=== PATIENT | female | born 1950 | race Caucasian/White ===

== ENCOUNTER → 2018-01-08 12:54 | Outpatient (CLI) | payer MEDICARE, SELFPAY ==
[2018-01-08 13:52] LABS: Hemoglobin A1c 8.2 % (4.2-6.3)
[2018-01-08 13:57] LABS: Thyroid Stim Hormone (TSH) 3.38 uIU/mL (0.358-3.74)
== END ==
PROVIDERS: Family Provider Family Medicine; PCP Family Medicine; Visit Provider Family Medicine
DX: E11.9 Type 2 diabetes mellitus without complications (principal); I10 Essential (primary) hypertension
CPT/HCPCS: 36415; 83036; 84443

== ENCOUNTER → 2018-04-09 11:52 | Outpatient (CLI) | payer MEDICARE, SELFPAY ==
[2018-04-09 12:59] LABS: Hemoglobin A1c 7.9 % (4.2-6.3)
== END ==
PROVIDERS: Family Provider Family Medicine; PCP Family Medicine; Referring Provider Family Medicine; Visit Provider Family Medicine
DX: E11.9 Type 2 diabetes mellitus without complications (principal)
CPT/HCPCS: 36415; 83036

== ENCOUNTER 2018-05-08 11:00 | Outpatient (RCR) | payer MEDICARE, SELFPAY ==
--- NOTE | 2018-04-11 12:48 | HP.PTEVAL ---
Patient's Visit Information LISY MCKINNON is a 67 year old F referred to Physical Therapy by Klaus Rasmussen DO with a diagnosis of RIGHT SHOULDER ROTATOR CUFF ARTHROPATHY. Date of Evaluation: 04/11/18 Physical Therapist: Kira Goodrich Visit Plan Frequency: 2-3x /Week Duration: 4-6 Weeks Plan: US, POSTURE CORRECTION/STRENGTHENING, INSTRUCTION IN APPROPRIATE BODY MECHANICS AND ACTIVITY MODIFICATIONS. RIGHT UE ROM, MOBILIZATION, STRETCHING AND STRENGTHENING. HEP INSTRUCTION. - Subjective Subjective: Diagnosis: RIGHT SHOULDER ROTATOR CUFF ARTHROPATHY. Work/Leisure: RETIRED. 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 Disability: NO. Present symptoms: THE MAIN PAIN IS IN THE FRONT OF THE SHOULDER AND DOWN INTO THE BICEP. RIGHT NECK PAIN CAME LATER. NO UE NUMBNESS OR TINGLING. Present since: ABOUT A YEAR AGO. Pain Scale: Worst - 7/10 Least - 0/10. Currently: 0/10. Commenced as a result of: NO APPARENT REASON - GRADUAL. Symptoms at onset: SAME. Worse: TRYING TO HOLD ARM ABOVE HEAD, TRYING TO CURL HAIR, TRYING TO BLOW DRY HAIR, TRYING TO PUT A SHIRT ON, TRYING TO PUT COAT ON, TRYING TO REACH BEHIND BACK, LIFTING A COFFEE CUP UP TO DRINK, USING MOUSE ON COMPUTER. Better: RESTING. Disturbed sleep: YES. Previous history/Previous treatment: NO SHOULDER PROBLEM PRIOR TO A YEAR AGO BUT HAS HAD CHRONIC NECK PAIN LONGER. Dizziness: NO. Tinnitis: NO. Nausea: NO. Difficulty Swollowing: NO. Gait: RIGHT KNEE PAIN. NO AD'S NOW. NO FALLS. Accidents: NO. Unexplained weight loss: NO. Imaging: RIGHT SHOULDER X-RAY IN [place] ABOUT AUG 2017 - PATIENT REPORTS DR. RASMUSSEN TOLD HER THERE IS NO STRUCTUAL DAMAGE. PMH/Recent major surgery: STENT FOR KIDNEY STONES LAST. NIDDM, HTN, HYPOTHYROIDISM. OTHER: PATIENT REPORTS DR. RASMUSSEN TOLD HER HE THINKS SHE HAS A PARTIAL ROTATOR CUFF TEAR. - Objective Sitting Posture/Standing Posture: FORWARD HEAD AND ROUNDED SHOULDERS. NO TORTICOLLIS. Active Correction of posture: NE. Other Observations: INDEP GAIT AND TRANSFERS. Motor deficit: LUE ROM WFL. RIGHT SHOULDER GROSSLY 3-/5, ELBOW 4/5, WRIST AND HAND 5/5. Sensory deficit: NO. ROM deficit: ACTIVE RIGHT SHOULDER FLEX 115 DEG, ABD 110, ER 43 DEG AND IR 20 DEG WITH 80 DEG OF ABD IN SUPINE. LEFT UE WFL. Reflexes: MEGHNA UE DTR'S 1/2. Dural Signs: NEGATATIVE. Cervical Mvmt Loss: Flex: NIL. Pro: NIL. Ext: MOD TO CROW. Ret: CROW. RSB: MOD - PRODUCES RIGHT SHLD PAIN. LSB: MOD. R Rot: MOD - I FEEL IT IN MY SHOULDER. L Rot: MIN. Postural strength: POOR. Palpation: SORENESS WITH PALPATION OF ANTERIOR RIGHT SHOULDER INTO BICEP BUT NOT IN CERVICAL SPINE. - Goals Goal 1:: DECREASE C/O RIGHT SHOULDER/ARM PAIN Goal Time Frame: 4-6 Weeks Goal 2:: IMPROVE FUNCTIONAL ROM OF RIGHT UE Goal Time Frame: 4-6 Weeks Goal 3:: IMPROVE FUNCTIONAL STRENGTH OF RIGHT UE Goal Time Frame: 4-6 Weeks Goal 4:: INDEP HEP Goal Time Frame: 4-6 Weeks - Rehabilitation Potential Rehabilitation Potential: Fair - Anticipated Interventions Patient/Client Instruction: Educate patient on: Condition, Plan of Care, Risk Factors, Benefits of Fitness Program For the Purpose of:: To improve self management Therapeutic Exercise to Include: Strength training, Body mechanics, Postural training, Flexibilty training, Passive ROM, Active ROM, Scapular Strength/Stabilization For the Purpose of:: To decrease pain, To increase ROM, To improve muscle performance and motor function, To increase tolerance to activity/condition/position, To improve ability of physical actions for home/community/work/leisure Manual Therapy Techniques to Include: Mobilization, Passive ROM For the Purpose of:: To decrease pain, To increase ROM Cryotherapy (ice pack, ice massage): Yes Thermo therapy (hot pack): Yes Ultrasound (thermal/non thermal): Yes For the Purpose of:: To decrease pain, To increase ROM Thank you for the opportunity to evaluate your patient. For Medicare and Medicare HMO plans, please review the plan of care and approve it. It will need to be FAXED BACK to us at [phone] for Medicare purposes. Please let me know if there are questions or concerns regarding this plan of care. Physician Signature: Date:
--- NOTE | 2018-08-25 10:32 | HP.PT.NRP ---
HP - Discharge Summary (1) - Patient Information LISY MCKINNON was seen in my office for initial evaluation on 04/11/18. The following Plan of Care was established for this patient: Initial Frequency: 2-3x /Week Initial Duration: 4-6 Weeks - Anticipated Interventions Patient/Client Instruction: Educate patient on: Condition, Plan of Care, Risk Factors, Benefits of Fitness Program For the Purpose of:: To improve self management Therapeutic Exercise to Include: Strength training, Body mechanics, Postural training, Flexibilty training, Passive ROM, Active ROM, Scapular Strength/Stabilization For the Purpose of:: To decrease pain, To increase ROM, To improve muscle performance and motor function, To increase tolerance to activity/condition/position, To improve ability of physical actions for home/community/work/leisure Manual Therapy Techniques to Include: Mobilization, Passive ROM For the Purpose of:: To decrease pain, To increase ROM Cryotherapy (ice pack, ice massage): Yes Thermo therapy (hot pack): Yes Ultrasound (thermal/non thermal): Yes For the Purpose of:: To decrease pain, To increase ROM This patient was last seen in our office 05/08/18. Pertinent comments regarding their Physical therapy will appear below: This patient has not returned to Physical Therapy and is appropriate to return to MD for further follow-up as needed. At this point I will be discontinuing this patient from physical therapy. I would be happy to see this patient again in the future if found appropriate by the physician. Thank you! Kira Mata, PT, Cert MDT
== END 2018-05-08 19:00 | disposition home or self-care (01) ==
LOC: PT 11:00
PROVIDERS: Family Provider Family Medicine; PCP Family Medicine; Referring Provider Family Medicine; Visit Provider Family Medicine
DX: M12.811 Other specific arthropathies, not elsewhere classified, right shoulder (principal)
CPT/HCPCS: 97035; 97140; 97162; 97530

== ENCOUNTER → 2018-05-26 16:15 | Outpatient (CLI) | payer MEDICARE, SELFPAY ==
--- NOTE | 2018-05-26 16:17 | MRI_ITS ---
STUDY: MRI RIGHT SHOULDER REASON FOR EXAM: Shoulder pain with limited range of motion for one year, no specific injury, calcific tendinitis. TECHNIQUE: Standardized fat and water weighted pulse sequences were obtained in all 3 orthogonal planes. COMPARISON: None. FINDINGS: There is a suspected signal void in the distal anterior supraspinatus tendon (proton density axial image 9), suggestive of calcific tendinitis, and a small linear intermediate grade partial-thickness tear of the articular surface of the distal posterior supraspinatus tendon at the greater tuberosity insertion (proton-density coronal image 11; T2 coronal image 11). Normal infraspinatus tendon. Normal subscapularis tendon. Normal teres minor tendon. Normal supraspinatus muscle. Normal infraspinatus muscle. Normal subscapularis muscle. Normal teres minor muscle. There is a minimal volume of fluid in the glenohumeral joint, extending into the bicipital tendon sheath. There is mild cystic change of the posterior aspect of the greater tuberosity. Normal biceps labral complex. Normal intracapsular long biceps tendon. Normal labrum. Normal capsulo- ligamentous complex. There is acromioclavicular arthrosis with mild hypertrophic changes effacing the subacromial fat (T2 sagittal image 11). There is a Type II morphology (curved), with a mild posterior downsloping orientation. There is a trace of subacromial-subdeltoid bursal fluid. Normal visualized coracohumeral and coracoacromial ligaments. Normal deltoid muscle. Normal trapezius muscle. MRI/Upper Ext Joint Only(Routine) IMPRESSION: Small linear partial-thickness tear of the supraspinatus tendon and suspected supraspinatus calcific tendinitis. Acromioclavicular arthrosis. Electronically Signed: Dean Pfeiffer MD at 11:28 EST Tel , Service support ,
--- OUTSIDE RECORDS SUMMARY | 2018-07-08 15:44 | XMS RPT_ITS ---
:1950 Author Organization OHIP Support Name Relationship Address Phone REBEAC MCKINNON Unavailable [address] + [place] [address] R Unavailable Unavailable Unavailable REBECA MCKINNON Unavailable [address] + [place] [address] R Unavailable Unavailable Unavailable REBECA MCKINNON Unavailable [address] + [place] [address] R Unavailable Unavailable Unavailable REBECA MCKINNON Unavailable [address] + [place] [address] R Unavailable Unavailable Unavailable REBECA MCKINNON Unavailable [address] + [place] [address] R Unavailable Unavailable Unavailable REBECA MCKINNON Unavailable [address] + [place] [address] R Unavailable Unavailable Unavailable REBECA MCKINNON Unavailable [address] + [place] [address] R Unavailable Unavailable Unavailable REBECA MCKINNON Unavailable [address] + [place] [address] R Unavailable Unavailable Unavailable REBECA MCKINNON Unavailable [address] + [place] [address] R Unavailable Unavailable Unavailable REBECA MCKINNON Unavailable [address] + [place] [address] R Unavailable Unavailable Unavailable REBECA MCKINNON Unavailable Unavailable + REBECA MCKINNON Unavailable Unavailable + Care Team Providers Name Role Phone VINNY RASMUSSEN Attending Unavailable BROWN, VINNY Primary Care Unavailable Didi Moctezuma Attending Unavailable Brown, Vinny Attending Unavailable Brown, Vinny Referring Unavailable MoctezumaSanchezvet Attending Unavailable Brown, Vinny Attending Unavailable Brown, Vinny Referring Unavailable Brown, Vinny Primary Care Unavailable Brown, Vinny Attending Unavailable Brown, Vinny Referring Unavailable Brown, Vinny Attending Unavailable Brown, Vinny Referring Unavailable Brown, Vinny Primary Care Unavailable Brown, Vinny Attending Unavailable Brown, Vinny Referring Unavailable Brown, Vinny Primary Care Unavailable Chicorelli, Adele Attending Unavailable Brown, Vinny Referring Unavailable Chicorelli, Adele Attending Unavailable Chicorelli, Adele Referring Unavailable Brown, Vinny Primary Care Unavailable Chicorelli, Adele Attending Unavailable Brown, Vinny Referring Unavailable PROBLEMS PROBLEMS DATE TYPE CONDITION / CODE ATTENDING STATUS SOURCE 06/05/2018 Unknown M75.31 - Calcific Chicorelli, Active [place] tendinitis of right [facility] shoulder / Hospital M75.31(ICD-10) Repository 06/05/2018 Unknown M75.81 - Other Chicorelli, Active [place] shoulder lesions, [facility] right shoulder / Hospital M75.81(ICD-10) Repository 06/05/2018 Unknown M75.51 - Bursitis Chicorelli, Active [place] of right shoulder / [facility] M75.51(ICD-10) Hospital Repository 05/08/2018 Unknown M12.811 - Other Brown, Vinny Active [place] specific [facility] arthropathies, not Hospital elsewhere Repository classified, right shoulder / M12.811(ICD-10) 04/09/2018 Unknown E11.9 - Type 2 Brown, Vinny Active [place] diabetes mellitus [facility] without Hospital complications / Repository E11.9(ICD-10) 01/08/2018 Unknown I10 - Essential Brown, Vinny Active [place] (primary) [facility] hypertension / Hospital I10(ICD-10) Repository 01/07/2018 Unknown E03.9 - Brown, Vinny Active [place] Hypothyroidism, [facility] unspecified / Hospital E03.9(ICD-10) Repository PROCEDURES PROCEDURES No Procedure Records FoundRESULTS RESULTS ORTHOPEDIC VISIT Observed: 06/05/2018 Status: F Source: [place] REPORT 2:16 PM [facility] REPOSITORY [facility] [address] [place], [place] [id number] OFFICE VISIT Date of Service: 06/05/18 MR#: [id number] Acct: [id number] Name: ALISON MCKINNON Rep #: [id number] : 1950 Provider: Adele Hernandez DO Age/Sex: 67/F [place] [facility] Status: Signed Intake Intake Visit Reasons: RIGHT SHOULDER Is patient in pain?: No Allergies bacitracin [From Neosporin (vgb-hbe-bqook)] Allergy (Verified 06/05/18 13:00) Other neomycin [From Neosporin (oac-buo-cpslz)] Allergy (Verified 06/05/18 13:00) Other polymyxin B [From Neosporin (jpu-sfs-wjuwf)] Allergy (Verified 06/05/18 13:00) Other succinylcholine [From Anectine] Allergy (Verified 06/05/18 13:00) Other Medications Aspirin [Aspirin, Baby] 81 mg PO DAILY@0800 09/14/16 [History Confirmed 04/09/18] Calcium Carbonate [Calcium] 200 mg PO DAILY 09/14/16 [History Confirmed 04/09/18] bisoprolol 5 mg-hydrochlorothiazide 6.25 mg tablet 1 tab PO DAILY #90 tab 11/30/17 [Rx Confirmed 04/09/18] glipizide ER 2.5 mg tablet, extended release 24 hr 5 mg PO DAILY #90 tab 11/30/17 [Rx Confirmed 04/09/18] levothyroxine 75 mcg tablet 75 mcg PO DAILY #90 tab 11/30/17 [Rx Confirmed 04/09/18] metformin ER 1,000 mg 24 hr tablet,extended release 1,000 mg PO DAILY #90 tab 11/30/17 [Rx Confirmed 04/09/18] blood sugar diagnostic strips See Dose Instructions .ROUTE .MEDSUPPLY #20 ea 01/03/18 [History Confirmed 04/09/18] empagliflozin 25 mg tablet 25 mg PO QAM 01/03/18 [History Confirmed 04/09/18] lancets 26 gauge See Dose Instructions .ROUTE .MEDSUPPLY #50 ea 01/03/18 [History Confirmed 04/09/18] oxybutynin chloride ER 10 mg tablet,extended release 24 hr 10 mg PO DAILY #30 tab 04/09/18 [Rx Confirmed 04/09/18] alpha lipoic acid 200 mg capsule mg PO cap 05/08/18 [History Confirmed 05/08/18] cinnamon bark 500 mg capsule mg PO cap 05/08/18 [History Confirmed 05/08/18] coenzyme Q10 30 mg capsule 30 mg PO DAILY 05/08/18 [History Confirmed 05/08/18] flaxseed oil 1,000 mg capsule 1,000 mg PO BID 05/08/18 [History Confirmed 05/08/18] glucosamine HCl 1,500 mg tablet 1,500 mg PO DAILY 05/08/18 [History Confirmed 05/08/18] grape seed extract-bioflavonoids, citrus 50 mg-250 mg capsule cap PO cap 05/08/18 [History Confirmed 05/08/18] minerals tablet tab PO tab 05/08/18 [History Confirmed 05/08/18] vitamins A,C,and E-selenium capsule 1 cap PO BID 05/08/18 [History Confirmed 05/08/18] PFSH Medical History History of kidney stones (Acute) Knee pain (Acute) Hypertension (Chronic) Type 2 diabetes mellitus (Chronic) Hypothyroidism (Chronic) Surgical History History of (Acute) History of hysterectomy (Acute) History of orthopedic surgery (Acute) History of tubal ligation (Acute) Normal colonoscopy (Acute) bartholin gland surgery (Acute) left ankle repair (Acute) Family History Mother Diabetes Hypertension Heart disease CVA (cerebral vascular accident) Grandmother Diabetes Hypertension Grandfather Cancer Father Myocardial infarction Hypertension Heart disease Melanoma High cholesterol Social History Smoking Status: Never smoker alcohol intake: never substance use type: does not use what type of physical activity do you participate in: bicycling HPI RIGHT SHOULDER: Details: ALISON MCKINNON is a 67 year old F here today for right shoulder pain. Patient notes that her pain is over her anterior shoulder and into her upper arm, and into her posterior shoulder. Patient has pain with range of motion and has decreased range of motion. Denies numbness, tingling or other associated symptoms. She denies any injections. Patient had multiple sessions of PT which was helpful. She had an MRI which is here for review. ROS Const Reports system reviewed and no additional complaints, except as docu Eyes Reports system reviewed and no additional complaints, except as docu ENT Reports system reviewed and no additional complaints, except as docu Card Reports system reviewed and no additional complaints, except as docu Resp Reports system reviewed and no additional complaints, except as docu GI Reports system reviewed and no additional complaints, except as docu Reports system reviewed and no additional complaints, except as docu Musc Reports joint pain, Reports limited joint movement, Reports muscle weakness Skin/Breast Reports system reviewed and no additional complaints, except as docu Neuro Yes system reviewed and no additional complaints, except as docu Psych Reports system reviewed and no additional complaints, except as docu Endo Reports system reviewed and no additional complaints, except as docu Ortho Exam Right Shoulder Skin/Wound: Yes CDI Contralateral Normal: Yes Testing: Positive Hawkin's, Neer's, empty can and AROM-Forward Elevation 0-180 (130) Internal Rotation: Buttock Office Procedures Ortho Injections Injections Yes Subacromial Injection Right Details: Obtained consent for injection. Under sterile conditions, injected the patients right subacromial joint with a 10cc cocktail of 8cc bupivacaine and 2cc kenalog. The patient tolerated the injection well without any noted complication. Patient should call our office if redness develops, pain worsens or if they have any concerns. Office Meds Kenalog Performing Provider: Adele Hernandez DO Administered by: Ismael Ervni on 06/05/18 13:16 Dose Route Admin Location Lot Number Expiration DateNDC Teaching Assistant 80 mg Intra-Articularright [id number] 05/31/19 [id number] [employer] [facility] Assessment AND Plan 1. Calcific tendinitis of right shoulder M75.31 Plan Personally reviewed the MRI and explained that she has small partial tear of the supraspinatus, bursitis and calcific tendonitis. Her treatment options are do nothing, injection or shoulder scope. Reviewed the risks and benefits of a steroid injection today, she can have two injections before we discuss a shoulder arthroscopy. Continue HEP. Follow up in 3-4 months or sooner if pain, swelling, numbness or associated symptoms, or concerns develop. All questions answered. Patient in agreement of plan. Orders Orders: Medications Discontinued: Kenalog (triamcinolone acetonide) Xunwhvds75 mg (2 mL) Intra-Articular ONCE 2 mL 0RF NS nued Reason: Office Medication has been Docu mented as given 2. Right rotator cuff tendinitis M75.81 Orders Orders: Medications Discontinued: Kenalog (triamcinolone acetonide) Yxzgomzo99 mg (2 mL) Intra-Articular ONCE 2 mL 0RF NS nued Reason: Office Medication has been Docu mented as given 3. 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) 06/05/18 1416 <Electronically signed by Adele Hernandez DO> Date Adele Hernandez DO Cosigner Signature: Date (if applicable) CC: UPPER EXT JOINT Observed: 05/26/2018 Status: F Source: [place] ONLY(ROUTINE) 4:17 PM [facility] REPOSITORY [facility] Imaging Services [address] [place] [id number] Upper Ext Joint Only(Routine) MR#: [id number] Acct: [id number] Name: ALISON MCKINNON Rep #: [id number] : 1950 F 67 From: Dean Pfeiffer MD PCP: Vinny Rasmussen DO Status: REG CLI Study: Upper Ext Joint Only(Routine) Date of Exam: 05/26/18 Exam# [id number] Ordering Dr: Adele Hernandez DO STUDY: MRI RIGHT SHOULDER REASON FOR EXAM: Shoulder pain with limited range of motion for one year, no specific injury, calcific tendinitis. TECHNIQUE: Standardized fat and water weighted pulse sequences were obtained in all 3 orthogonal planes. COMPARISON: None. FINDINGS: There is a suspected signal void in the distal anterior supraspinatus tendon (proton density axial image 9), suggestive of calcific tendinitis, and a small linear intermediate grade partial-thickness tear of the articular surface of the distal posterior supraspinatus tendon at the greater tuberosity insertion (proton-density coronal image 11; T2 coronal image 11). Normal infraspinatus tendon. Normal subscapularis tendon. Normal teres minor tendon. Normal supraspinatus muscle. Normal infraspinatus muscle. Normal subscapularis muscle. Normal teres minor muscle. There is a minimal volume of fluid in the glenohumeral joint, extending into the bicipital tendon sheath. There is mild cystic change of the posterior aspect of the greater tuberosity. Normal biceps labral complex. Normal intracapsular long biceps tendon. Normal labrum. Normal capsulo- ligamentous complex. There is acromioclavicular arthrosis with mild hypertrophic changes effacing the subacromial fat (T2 sagittal image 11). There is a Type II morphology (curved), with a mild posterior downsloping orientation. There is a trace of subacromial-subdeltoid bursal fluid. Normal visualized coracohumeral and coracoacromial ligaments. Normal deltoid muscle. Normal trapezius muscle. MRI/Upper Ext Joint Only(Routine) IMPRESSION: Small linear partial-thickness tear of the supraspinatus tendon and suspected supraspinatus calcific tendinitis. Acromioclavicular arthrosis. Electronically Signed: Dean Pfeiffer MD at 11:28 EST Tel , Service support , CC: Adele Hernandez DO; Vinny Rasmussen DO District Manager Postal Service: Signed ORTHOPEDIC VISIT Observed: 05/08/2018 Status: F Source: [place] REPORT 4:18 PM [facility] REPOSITORY [facility] [address] [place] [address] OFFICE VISIT Date of Service: 05/08/18 MR#: [id number] Acct: [id number] Name: ALISON MCKINNON Rep #: [id number] : 1950 Provider: Adele Hernandez DO Age/Sex: 67/F [place] [facility] Status: Signed Intake Intake Visit Reasons: RIGHT SHOULDER Chief Complaint: 3 mo F/ - Diabetes Inpatient Services Rn Required: No Accompanied by: None Is patient in pain?: No Allergies bacitracin [From Neosporin (olw-yjc-hexdm)] Allergy (Verified 04/09/18 11:03) Other neomycin [From Neosporin (gra-ihr-dpdgs)] Allergy (Verified 04/09/18 11:03) Other polymyxin B [From Neosporin (aau-vcj-kjrzu)] Allergy (Verified 04/09/18 11:03) Other succinylcholine [From Anectine] Allergy (Verified 04/09/18 11:03) Other Medications Aspirin [Aspirin, Baby] 81 mg PO DAILY@0800 09/14/16 [History Confirmed 04/09/18] Calcium Carbonate [Calcium] 200 mg PO DAILY 09/14/16 [History Confirmed 04/09/18] bisoprolol 5 mg-hydrochlorothiazide 6.25 mg tablet 1 tab PO DAILY #90 tab 11/30/17 [Rx Confirmed 04/09/18] glipizide ER 2.5 mg tablet, extended release 24 hr 5 mg PO DAILY #90 tab 11/30/17 [Rx Confirmed 04/09/18] levothyroxine 75 mcg tablet 75 mcg PO DAILY #90 tab 11/30/17 [Rx Confirmed 04/09/18] metformin ER 1,000 mg 24 hr tablet,extended release 1,000 mg PO DAILY #90 tab 11/30/17 [Rx Confirmed 04/09/18] blood sugar diagnostic strips See Dose Instructions .ROUTE .MEDSUPPLY #20 ea 01/03/18 [History Confirmed 04/09/18] empagliflozin 25 mg tablet 25 mg PO QAM 01/03/18 [History Confirmed 04/09/18] lancets 26 gauge See Dose Instructions .ROUTE .MEDSUPPLY #50 ea 01/03/18 [History Confirmed 04/09/18] oxybutynin chloride ER 10 mg tablet,extended release 24 hr 10 mg PO DAILY #30 tab 04/09/18 [Rx Confirmed 04/09/18] alpha lipoic acid 200 mg capsule mg PO cap 05/08/18 [History Confirmed 05/08/18] cinnamon bark 500 mg capsule mg PO cap 05/08/18 [History Confirmed 05/08/18] coenzyme Q10 30 mg capsule 30 mg PO DAILY 05/08/18 [History Confirmed 05/08/18] flaxseed oil 1,000 mg capsule 1,000 mg PO BID 05/08/18 [History Confirmed 05/08/18] glucosamine HCl 1,500 mg tablet 1,500 mg PO DAILY 05/08/18 [History Confirmed 05/08/18] grape seed extract-bioflavonoids, citrus 50 mg-250 mg capsule cap PO cap 05/08/18 [History Confirmed 05/08/18] minerals tablet tab PO tab 05/08/18 [History Confirmed 05/08/18] vitamins A,C,and E-selenium capsule 1 cap PO BID 05/08/18 [History Confirmed 05/08/18] PFS Medical History History of kidney stones (Acute) Knee pain (Acute) Hypertension (Chronic) Type 2 diabetes mellitus (Chronic) Hypothyroidism (Chronic) Surgical History History of (Acute) History of hysterectomy (Acute) History of orthopedic surgery (Acute) History of tubal ligation (Acute) Normal colonoscopy (Acute) bartholin gland surgery (Acute) left ankle repair (Acute) Family History Mother Diabetes Hypertension Heart disease CVA (cerebral vascular accident) Grandmother Diabetes Hypertension Grandfather Cancer Father Myocardial infarction Hypertension Heart disease Melanoma High cholesterol Social History Smoking Status: Never smoker alcohol intake: never substance use type: does not use what type of physical activity do you participate in: bicycling HPI RIGHT SHOULDER: Details: ALISON MCKNINON is a 67 year old F here today for right shoulder pain. Patients shoulder has been bothering her for over a year with no known injury. Patient rates her pain as a 0/10 right now but states it depends on what she is doing as to if it hurts her. Patients pain is at her right deltoid, bicep and around to the scapula. Patient is able to lift her arm above her head and abduct it, but states she feels it. She states she is unable to put her arm behind her back. Moving and using her arm seems to make the pain worse. Patient states holding still and ice seem to help relieve the pain. Patient states that she used heat before and it seemed to make it worse. Patient denies popping or clicking and swelling. Denies numbness and tingling. Patient has had xrays in August 2017, No MRI or injections. Patient is currently in PT and it seems to be helping. Ortho Exam Right Shoulder Contralateral Normal: Yes Testing: Positive Hawkin's, Neer's, Speed's, AROM-External Rotation at side 0-60, TTP Biceps, PROM-Forward Elevation 0-180 (pos drop a) and Drop Arm Internal Rotation: Buttock SHOULDER: 0-30 paifnul. weak external rotation Assessment AND Plan 1. Calcific tendinitis of right shoulder M75.31 Plan Personally reviewed the patient's medical history, medications, surgeries and recent exams if available. X-rays were reviewed. There is no obvious fracture, dislocation, or lucency noted. Educated on the anatomy of the shoulder and etiology of her pain. Explained that she has calcific tendonitis and has RTC weakness, her treatment options are do nothing, continue PT, steroid injection or MRI to delineate between weakness of RTC due to pain or tear. Patient is in understanding of the benefits of the injection and will discuss further after MRI. Follow up after MRI or sooner if pain, swelling, numbness or associated symptoms, or concerns develop. All questions answered. Patient in agreement of plan. Orders Orders: Plan Detail Other Orders Orders: Coding Level of Care Code Off vis,new,level 3 Diagnoses Calcific tendinitis of right shoulder M75.31 05/08/18 1618 <Electronically signed by Adele Hernandez DO> Date Adele Hernandez DO Cosigner Signature: Date (if applicable) CC: Vinny Rasmussen DO INITAL EVALUATION (1) Observed: 04/11/2018 Status: F Source: [place] - PT 5:00 PM [facility] REPOSITORY [facility] Physical Therapy [address] [place] [address] Fax REHABILITATION SERVICES INITIAL EVALUATION MR#: [id number] Acct: [id number] Name: ALISON MCKINNON Rep #: [id number] : 1950 67 From: Kira Mata PT, Cert. MDT Referring Dr.: Vinny Rasmussen DO Status: REG RCR Insurance: MMO MEDICARE SELF PAY INSURANCE Patient's Visit Information ALISON MCKINNON is a 67 year old F referred to Physical Therapy by Vinny Rasmussen DO with a diagnosis of RIGHT SHOULDER ROTATOR CUFF ARTHROPATHY. Date of Evaluation: 04/11/18 Physical Therapist: Kira Mata - Visit Plan Frequency: 2-3x /Week Duration: 4-6 Weeks Plan: US, POSTURE CORRECTION/STRENGTHENING, INSTRUCTION IN APPROPRIATE BODY MECHANICS AND ACTIVITY MODIFICATIONS. RIGHT UE ROM, MOBILIZATION, STRETCHING AND STRENGTHENING. HEP INSTRUCTION. - Subjective Subjective: Diagnosis: RIGHT SHOULDER ROTATOR CUFF ARTHROPATHY. Work/Leisure: RETIRED. 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 Disability: NO. Present symptoms: THE MAIN PAIN IS IN THE FRONT OF THE SHOULDER AND DOWN INTO THE BICEP. RIGHT NECK PAIN CAME LATER. NO UE NUMBNESS OR TINGLING. Present since: ABOUT A YEAR AGO. Pain Scale: Worst - 7/10 Least - 0/10. Currently: 0/10. Commenced as a result of: NO APPARENT REASON - GRADUAL. Symptoms at onset: SAME. Worse: TRYING TO HOLD ARM ABOVE HEAD, TRYING TO CURL HAIR, TRYING TO BLOW DRY HAIR, TRYING TO PUT A SHIRT ON, TRYING TO PUT COAT ON, TRYING TO REACH BEHIND BACK, LIFTING A COFFEE CUP UP TO DRINK, USING MOUSE ON COMPUTER. Better: RESTING. Disturbed sleep: YES. Previous history/Previous treatment: NO SHOULDER PROBLEM PRIOR TO A YEAR AGO BUT HAS HAD CHRONIC NECK PAIN LONGER. Dizziness: NO. Tinnitis: NO. Nausea: NO. Difficulty Swollowing: NO. Gait: RIGHT KNEE PAIN. NO AD'S NOW. NO FALLS. Accidents: NO. Unexplained weight loss: NO. Imaging: RIGHT SHOULDER X-RAY IN [place] ABOUT AUG 2017 - PATIENT REPORTS DR. RASMUSSEN TOLD HER THERE IS NO STRUCTUAL DAMAGE. PMH/Recent major surgery: STENT FOR KIDNEY STONES LAST. NIDDM, HTN, HYPOTHYROIDISM. OTHER: PATIENT REPORTS DR. RASMUSSEN TOLD HER HE THINKS SHE HAS A PARTIAL ROTATOR CUFF TEAR. - Objective Sitting Posture/Standing Posture: FORWARD HEAD AND ROUNDED SHOULDERS. NO TORTICOLLIS. Active Correction of posture: NE. Other Observations: INDEP GAIT AND TRANSFERS. Motor deficit: LUE ROM WFL. RIGHT SHOULDER GROSSLY 3-/5, ELBOW 4/5, WRIST AND HAND 5/5. Sensory deficit: NO. ROM deficit: ACTIVE RIGHT SHOULDER FLEX 115 DEG, ABD 110, ER 43 DEG AND IR 20 DEG WITH 80 DEG OF ABD IN SUPINE. LEFT UE WFL. Reflexes: MEGHNA UE DTR'S 1/. Dural Signs: NEGATATIVE. Cervical Mvmt Loss: Flex: NIL. Pro: NIL. Ext: MOD TO CROW. Ret: CROW. RSB: MOD - PRODUCES RIGHT SHLD PAIN. LSB: MOD. R Rot: MOD - I FEEL IT IN MY SHOULDER. L Rot: MIN. Postural strength: POOR. Palpation: SORENESS WITH PALPATION OF ANTERIOR RIGHT SHOULDER INTO BICEP BUT NOT IN CERVICAL SPINE. - Goals Goal 1:: DECREASE C/O RIGHT SHOULDER/ARM PAIN Goal Time Frame: 4-6 Weeks Goal 2:: IMPROVE FUNCTIONAL ROM OF RIGHT UE Goal Time Frame: 4-6 Weeks Goal 3:: IMPROVE FUNCTIONAL STRENGTH OF RIGHT UE Goal Time Frame: 4-6 Weeks Goal 4:: INDEP HEP Goal Time Frame: 4-6 Weeks - Rehabilitation Potential Rehabilitation Potential: Fair - Anticipated Interventions Patient/Client Instruction: Educate patient on: Condition, Plan of Care, Risk Factors, Benefits of Fitness Program For the Purpose of:: To improve self management Therapeutic Exercise to Include: Strength training, Body mechanics, Postural training, Flexibilty training, Passive ROM, Active ROM, Scapular Strength/Stabilization For the Purpose of:: To decrease pain, To increase ROM, To improve muscle performance and motor function, To increase tolerance to activity/condition/position, To improve ability of physical actions for home/community/work/leisure Manual Therapy Techniques to Include: Mobilization, Passive ROM For the Purpose of:: To decrease pain, To increase ROM Cryotherapy (ice pack, ice massage): Yes Thermo therapy (hot pack): Yes Ultrasound (thermal/non thermal): Yes For the Purpose of:: To decrease pain, To increase ROM Thank you for the opportunity to evaluate your patient. For Medicare and Medicare HMO plans, please review the plan of care and approve it. It will need to be FAXED BACK to us at [phone] for Medicare purposes. Please let me know if there are questions or concerns regarding this plan of care. Physician Signature: Date: <Electronically signed by Kira Mata PT, Cert. MDT> 04/11/18 1700 CC: Vinny Rasmussen DO [place] Signed For Medicare only, by signing this I certify the plan of care. Physicians Signature Date INTERNAL MEDICINE Observed: 04/09/2018 Status: F Source: [place] OFFICE VISIT 12:56 PM [facility] [address] [place] [address] OFFICE VISIT Date of Service: 04/09/18 MR#: [id number] Acct: [id number] Name: ALISON MCKINNON Rep #: [id number] : 1950 Provider: Vinny Rasmussen DO Age/Sex: 67/F [place] [facility] Status: Signed Intake Vital Signs04/09/18 Height 5 ft 2 in 04/09/18 Weight: 164 lb 04/09/18 Body Mass Index (BMI) 29.9 04/09/18 Blood Pressure 155/87 H 04/09/18 Blood Pressure Location Lt brachial Intake Visit Reasons: 3 MO FU Chief Complaint: 3 mo F/ - Diabetes Allergies bacitracin [From Neosporin (wye-mry-igilk)] Allergy (Verified 04/09/18 11:03) Other neomycin [From Neosporin (occ-hrm-radpa)] Allergy (Verified 04/09/18 11:03) Other polymyxin B [From Neosporin (ull-tat-nfqjz)] Allergy (Verified 04/09/18 11:03) Other succinylcholine [From Anectine] Allergy (Verified 04/09/18 11:03) Other Medications Aspirin [Aspirin, Baby] 81 mg PO DAILY@0800 09/14/16 [History Confirmed 04/09/18] Calcium Carbonate [Calcium] 200 mg PO DAILY 09/14/16 [History Confirmed 04/09/18] bisoprolol 5 mg-hydrochlorothiazide 6.25 mg tablet 1 tab PO DAILY #90 tab 11/30/17 [Rx Confirmed 04/09/18] glipizide ER 2.5 mg tablet, extended release 24 hr 5 mg PO DAILY #90 tab 11/30/17 [Rx Confirmed 04/09/18] levothyroxine 75 mcg tablet 75 mcg PO DAILY #90 tab 11/30/17 [Rx Confirmed 04/09/18] metformin ER 1,000 mg 24 hr tablet,extended release 1,000 mg PO DAILY #90 tab 11/30/17 [Rx Confirmed 04/09/18] blood sugar diagnostic strips See Dose Instructions .ROUTE .MEDSUPPLY #20 ea 01/03/18 [History Confirmed 04/09/18] empagliflozin 25 mg tablet 25 mg PO QAM 01/03/18 [History Confirmed 04/09/18] lancets 26 gauge See Dose Instructions .ROUTE .MEDSUPPLY #50 ea 01/03/18 [History Confirmed 04/09/18] oxybutynin chloride ER 10 mg tablet,extended release 24 hr 10 mg PO DAILY #30 tab 04/09/18 [Rx Confirmed 04/09/18] PFSH Medical History History of kidney stones (Acute) Knee pain (Acute) Hypertension (Chronic) Type 2 diabetes mellitus (Chronic) Hypothyroidism (Chronic) Surgical History History of (Acute) History of hysterectomy (Acute) History of orthopedic surgery (Acute) History of tubal ligation (Acute) Normal colonoscopy (Acute) bartholin gland surgery (Acute) left ankle repair (Acute) Family History Mother Diabetes Hypertension Heart disease CVA (cerebral vascular accident) Grandmother Diabetes Hypertension Grandfather Cancer Father Myocardial infarction Hypertension Heart disease Melanoma High cholesterol Social History Smoking Status: Never smoker alcohol intake: never substance use type: does not use what type of physical activity do you participate in: bicycling HPI HPI Chief Complaint: 3 mo F/ - Diabetes Details: ALISON MCKINNON, is a 67 F who presents to the office today for a recheck on her diabetes. She also complains that her right shoulder is getting worse. It has been x-rayed in the past x-rays showed no bony abnormalities but she is unable to have even close to full range of motion of the shoulder and it is interfering with her day-to-day activities. ROS Const Constitutional: Positive for sleep problems; no chills, fatigue, fever(s), frequent falls, malaise, weakness or change in appetite Eyes Eyes: No blurry vision, change in vision, double vision, discharge or visual disturbances ENT ENT: No abnormal hearing, ear pain, ear pressure, tinnitus or dizziness/vertigo Resp Respiratory: No cough, shortness of breath or wheezing Cardio Cardiology: No chest pain at rest, chest pain with exertion, shortness of breath, dyspnea on exertion, generalized swelling, irregular heart rhythm, lightheadedness, orthopnea, fast heart rate or palpitations Gastro GI: Positive for constipation; no abdominal pain, change in bowel habits, diarrhea, nausea/dyspepsia or vomiting Genitourinary-Female: Positive for urinary incontinence; no difficulty urinating, burning urination, painful urination, urinary frequency, urinary urgency, urinary hesitancy, urinary retention, Frequent nighttime urination/ nocturia, sexual problems, genital lesions, abnormal vaginal bleeding, pelvic pain, vaginal dryness, vaginal odor or Vaginal Itching Musc Musculoskeletal: Positive for joint pain (Rt shoulder) and numbness (Feet); no back pain, joint swelling, limited range of motion, muscle weakness or tingling Skin Skin: No change in skin color, itching, rash or wounds Breast Breast: No breast lump or breast pain Neuro Neurology: Positive for numbness (Feet); no frequent falls, weakness, abnormal hearing, tingling, unsteady gait/balance, dizziness, loss of vision, memory loss or visual disturbances Psych Psychiatric: No memory loss, No anxiety, No change in appetite, No depression, No Thoughts of harming yourself/Others Endo Endocrine: No fatigue, heat intolerance, increased thirst/drinking, increased hunger or increased urination Aller/Imm Allergy/Immunologic: No wheezing, itchy eyes or seasonal allergy symptoms David/Lymp Hematologic/Lymphatic: No easy bleeding, easy bruising or enlarged lymph nodes Exam Const General: cooperative, healthy appearing Nutritional Appearance: average body habitus Orientation: oriented x3 Neck Neck: no lymphadenopathy Neck mass: No Thyroid: thyroid normal Resp Effort AND Inspection: normal respiratory effort Auscultation: Bilateral: Clear to Auscultation Cardio Rate: regular rate Rhythm: regular rhythm Musc Musculoskeletal: Yes joint tenderness and decreased ROM (Marked decrease of ROM Shoulder); no muscle weakness Skin General: no rashes or lesions noted Neuro Cranial Nerves: CN's II-XI intact bilaterally Extrem General: no clubbing, cyanosis or edema Psych Mood: congruent mood Affect: normal affect Assessment AND Plan Problems 1. Urge incontinence N39.41 2. Hypertension I10 3. Type 2 diabetes mellitus E11.9 4. Hypothyroidism E03.9 5. Shoulder pain, right M25.511 Plan Patient was here for diabetic recheck she feels her sugar control is pretty good. Biggest new complaint is right shoulder pain the pain is getting worse she has significant limitation in motion of the shoulder. X-rays in the past revealed no abnormalities. Because of her diabetes I am reluctant to use cortisone injections so my preference would be to start with physical therapy. Patient agrees with this and if physical therapy is not effective referral to an orthopedic surgeon would be the next step. Orders Orders: Referrals: Medications New: Plan Detail Follow Up 3 Months Coding Level of Care Code Off vis,est,level 3 Diagnoses Urge incontinence N39.41 Hypertension I10 Type 2 diabetes mellitus E11.9 Hypothyroidism E03.9 Shoulder pain, right M25.511 04/09/18 1256 <Electronically signed by Vinny Rasmussen DO> Date Vinny Rasmussen DO Cosigner Signature: Date (if applicable) CC: HEMOGLOBIN A1C Collected: 04/09/2018 Status: F Source: [place] 11:56 AM [facility] REPOSITORY TYPE CODE TESTS RESULT OUT OF RANGE REFERENCE UNITS LAB L501.9985 4.2-6.3 % High HGB A1C 7.9 Performed By: #### L501.9985 #### [facility] [address] [place], [address] HEMOGLOBIN A1C Collected: 01/08/2018 Status: F Source: [place] 1:01 PM [facility] [place] REPOSITORY TYPE CODE TESTS RESULT OUT OF RANGE REFERENCE UNITS LAB L501.9985 4.2-6.3 % High HGB A1C 8.2 Performed By: #### L501.9985 #### [facility] [address] [place], [address] THYROID STIM HORMONE Collected: 01/08/2018 Status: F Source: [place] (TSH) 1:01 PM [facility] REPOSITORY TYPE CODE TESTS RESULT OUT OF RANGE REFERENCE UNITS LAB L501.9520 0.358-3.74 uIU/mL Normal TSH 3.38 Performed By: #### L501.9520 #### [facility] [address] [place], [address] INTERNAL MEDICINE Observed: 01/07/2018 Status: F Source: [place] OFFICE VISIT 3:46 PM [facility] REPOSITORY [facility] [address] [place] [address] [place] [address] OFFICE VISIT Date of Service: 01/07/18 MR#: [id number] Acct: [id number] Name: ALISON MCKINNON Rep #: [id number] : 1950 Provider: Vinny Rasmussen DO Age/Sex: 67/F Location[place] [facility] Status: Signed Intake Intake Visit Reasons: EST Chief Complaint: 3 mo F/ - Diabetes Is patient in pain?: No Allergies bacitracin [From Neosporin (frs-lza-jewfb)] Allergy (Verified 01/07/18 15:05) Other neomycin [From Neosporin (yld-how-rxaue)] Allergy (Verified 01/07/18 15:05) Other polymyxin B [From Neosporin (hzc-fkt-jpedl)] Allergy (Verified 01/07/18 15:05) Other succinylcholine [From Anectine] Allergy (Verified 01/07/18 15:05) Other Medications Aspirin [Aspirin, Baby] 81 mg PO DAILY@0800 09/14/16 [History Confirmed 01/07/18] Calcium Carbonate [Calcium] 200 mg PO DAILY 09/14/16 [History Confirmed 01/07/18] bisoprolol 5 mg-hydrochlorothiazide 6.25 mg tablet 1 tab PO DAILY #90 tab 11/30/17 [Rx Confirmed 01/07/18] glipizide ER 2.5 mg tablet, extended release 24 hr 5 mg PO DAILY #90 tab 11/30/17 [Rx Confirmed 01/07/18] levothyroxine 75 mcg tablet 75 mcg PO DAILY #90 tab 11/30/17 [Rx Confirmed 01/07/18] metformin ER 1,000 mg 24 hr tablet,extended release 1,000 mg PO DAILY #90 tab 11/30/17 [Rx Confirmed 01/07/18] blood sugar diagnostic strips See Dose Instructions .ROUTE .MEDSUPPLY #20 ea 01/03/18 [History Confirmed 01/07/18] empagliflozin 25 mg tablet 25 mg PO QAM 01/03/18 [History Confirmed 01/07/18] lancets 26 gauge See Dose Instructions .ROUTE .MEDSUPPLY #50 ea 01/03/18 [History Confirmed 01/07/18] [facility] Medical History History of kidney stones (Acute) Knee pain (Acute) Hypertension (Chronic) Type 2 diabetes mellitus (Chronic) Hypothyroidism (Chronic) Surgical History History of (Acute) History of hysterectomy (Acute) History of tubal ligation (Acute) Normal colonoscopy (Acute) bartholin gland surgery (Acute) left ankle repair (Acute) Family History Mother Diabetes Hypertension Heart disease CVA (cerebral vascular accident) Grandmother Diabetes Hypertension Grandfather Cancer Father Myocardial infarction Hypertension Heart disease Melanoma High cholesterol Social History Smoking Status: Never smoker alcohol intake: never substance use type: does not use what type of physical activity do you participate in: bicycling HPI HPI Chief Complaint: 3 mo F/ - Diabetes Details: ALISON MCKINNON, is a 67 F who presents to the office today for ROS Const Constitutional: No chills, fatigue, fever(s), frequent falls, malaise, weakness, sleep problems or change in appetite Eyes Eyes: No blurry vision, change in vision, double vision, discharge or visual disturbances ENT ENT: No abnormal hearing, ear pain, ear pressure, tinnitus or dizziness/vertigo Resp Respiratory: No cough, shortness of breath or wheezing Cardio Cardiology: No chest pain at rest, chest pain with exertion, shortness of breath, dyspnea on exertion, generalized swelling, irregular heart rhythm, lightheadedness, orthopnea, fast heart rate or palpitations Gastro GI: No abdominal pain, change in bowel habits, constipation, diarrhea, nausea/dyspepsia or vomiting Genitourinary-Female: No difficulty urinating, burning urination, painful urination, urinary incontinence, urinary frequency, urinary urgency, urinary hesitancy, urinary retention, Frequent nighttime urination/ nocturia, sexual problems, genital lesions, abnormal vaginal bleeding, pelvic pain, vaginal dryness, vaginal odor or Vaginal Itching Musc Musculoskeletal: Positive for joint pain (Rt shoulder pain); no back pain, joint swelling, limited range of motion, muscle weakness, numbness or tingling Skin Skin: No change in skin color, itching, rash or wounds Breast Breast: No breast lump or breast pain Neuro Neurology: No frequent falls, weakness, abnormal hearing, numbness, tingling, unsteady gait/balance, dizziness, loss of vision, memory loss or visual disturbances Psych Psychiatric: No memory loss, No anxiety, No change in appetite, No depression, No Thoughts of harming yourself/Others Endo Endocrine: No fatigue, heat intolerance, increased thirst/drinking, increased hunger or increased urination Aller/Imm Allergy/Immunologic: No wheezing, itchy eyes or seasonal allergy symptoms David/Lymp Hematologic/Lymphatic: No easy bleeding, easy bruising or enlarged lymph nodes Exam Const General: healthy appearing Nutritional Appearance: well nourished Orientation: oriented x3 [facility] Head: normal to inspection Ears: hearing grossly normal bilaterally, TM's normal bilaterally Eyes General: appearance normal, both eyes and all related structures Pupils: PERRL Neck Neck: no lymphadenopathy Neck mass: No Thyroid: thyroid normal Resp Effort AND Inspection: normal respiratory effort Auscultation: Bilateral: Clear to Auscultation Cardio Palpation: normal PMI Rate: regular rate Rhythm: regular rhythm Musc Musculoskeletal: Yes joint tenderness (vague migratory joint pain); no muscle weakness Skin General: no rashes or lesions noted Neuro General: oriented x3, normal sensation to monofilament Cranial Nerves: CN's II-XI intact bilaterally Extrem General: no clubbing, cyanosis or edema Psych Appearance: well kempt Mental Status: mental status grossly normal Speech and Movement: speech and movement normal Attitude: cooperative Assessment AND Plan 1. Type 2 diabetes mellitus E11.9 Plan Hemoglobin A1c was ordered patient has not been in the office for some time but states that her blood sugars have really not changed much from baseline Orders Orders: 2. 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 Orders Orders: 3. Hypothyroidism E03.9 Plan She has had some unexplained weight gain and her TSH has been ordered to evaluate her thyroid dose to make sure she is euthyroid. Plan Detail Follow Up 3 Months Coding Level of Care Code Off vis,est,level 3 Diagnoses Type 2 diabetes mellitus E11.9 Hypertension I10 Hypothyroidism E03.9 01/07/18 1546 <Electronically signed by Vinny Rasmussen DO> Date Vinny Rasmussen DO Cosigner Signature: Date (if applicable) CC: XR SHOULDER MINIMUM 2 Observed: 08/13/2017 Status: F Source: [place] RIGHT 11:05 AM [facility] REPOSITORY ORIGINAL XR SHOULDER MINIMUM 2 VIEWS RIGHT CLINICAL STATEMENT: pain of right shoulder COMPARISON: None FINDINGS: No fracture or dislocation is identified. Mild right acromioclavicular degenerative changes. Calcification overlying the right humeral head may be due to chronic calcific tendinitis. IMPRESSION: Degenerative changes and findings which may represent calcific tendinitis. Interpreted By: Nitin Mac MD Preliminary Report By: Ntiin Mac MD Electronically Signed By: Nitin Mac MD Dictated Date: 08/13/2017 2:55:19 PM Prelim Date: 08/13/2017 2:55:19 PM Sign Date: 08/13/2017 2:56:08 PM XR HIP MINIMUM 2 Observed: 08/13/2017 Status: F Source: [place] LEFT 11:04 AM [facility] REPOSITORY ORIGINAL XR HIP MINIMUM 2 VIEWS LEFT CLINICAL STATEMENT: pain of left hip joint COMPARISON: None FINDINGS: No acute fracture or dislocation is identified. Mild left hip degenerative changes. There is no radiopaque foreign body. IMPRESSION: No acute fracture or dislocation. Interpreted By: Nitin Mac MD Preliminary Report By: Nitin Mac MD Electronically Signed By: Nitin Mac MD Dictated Date: 08/13/2017 2:42:26 PM Prelim Date: 08/13/2017 2:42:26 PM Sign Date: 08/13/2017 2:42:44 PM ALLERGIES ALLERGIES DATE TYPE / CODE NAME / CODE REACTION SEVERITY SOURCE 06/05/2018 Drug neomycin/[id number] Other Unknown [facility]416 775([facility]NORM[facility] 665615(SNOM Repository ED CT) 06/05/2018 Drug bacitracin/F0060 Other Unknown [place] [facility]/416 11614(RXNORM) [facility] 475068(SNOM Repository ED CT) 06/05/2018 Drug polymyxin Other Unknown [place] [facility] Allergy/416 B/[id number]([facility] 132561(SNOM OR) Repository ED CT) 06/05/2018 Drug succinylcholine/ Other Unknown [facility] Allergy/416 [id number]([facility] 176902(SNOM ) Repository ED CT) ENCOUNTERS ENCOUNTERS ADMIT/DISCHARGE ACCOUNT NUMBER ADMITTING ENCOUNTER LOCATION SOURCE CLASS 06/05/2018/06/05/20 [id number] Ambulatory BMSBuilding: [place] [facility] BMS.[facility] Repository 05/26/2018 [id number] Ambulatory [facility] ding:MRI Repository 05/08/2018/05/08/20 [id number] Ambulatory BMSBuilding: [place] 18 BMS.[facility] Repository 05/08/2018 [id number] Ambulatory [facility] ding:PT Repository 04/09/2018 [id number] Ambulatory [facility] ding:LAB Repository 04/09/2018/04/09/20 [id number] Ambulatory BMSBuilding: [place] 18 BMS.[facility] Repository 01/08/2018 [id number] Ambulatory [facility] ding:LAB Repository 01/07/2018 [id number] Ambulatory BMSBuilding: [place] BMS.[facility] Repository 01/07/2018/01/08/20 [id number] Ambulatory BMSBuilding: [place] 18 BMS.[facility] Repository 01/03/2018 [id number] Ambulatory BMSBuilding: [place] BMS.[facility] Repository 08/13/2017/08/13/19 [id number] Ambulatory [address] ding:[facility] Repository PAYERS PAYERS ENCOUNTER GUARANTOR PAYER SUBSCRIBER SOURCE 06/05/2018 ALISON L Primary Insurance:MMO ALISON L [place] [id number] MEDICAREPolicy MILLERDOB: [facility] Number: [id number], [place] [id number] Repository 634[address]Sbw: (330) Date:2074-14-86BI [phone] () [address] [place] [id number]: 06/05/2018 Secondary NOT GIVENUNK [place] Insurance:SELF PAY [facility] Number: Effective Repository Date:2018-06-05 05/26/2018 ALISON L Primary Insurance:MMO ALISON L [place] [id number] MEDICAREPolicy MILLERDOB: [facility] Number: [id number], [place] [id number] Repository 365[address]Lji: (330) Date:3288-38-57FE [phone] () [address] [place] [phone]: 05/26/2018 Secondary NOT GIVENUNK [place] Insurance:SELF PAY [facility] Number: Effective Repository Date:2018-05-21 05/08/2018 ALISON L Primary Insurance:MMO ALISON L [place] [id number] MEDICAREPolicy MILLERDOB: [facility] Number: [id number], [place] [id number] Repository [address]Taj: ([phone]) Date:6072-00-36PJ [phone] () [address] [place] [phone]: 05/08/2018 Secondary NOT GIVENUNK [place] Insurance:SELF PAY [facility] Number: Effective Repository Date:2018-05-08 05/08/2018 ALISON L Primary Insurance:MMO ALISON L [place] [id number] MEDICAREPolicy MILLERDOB: [facility] Number: [id number], [place] [id number] Repository [address]Mae: ([phone]) Date:7964-07-52QA [phone] (HP) [place], [place] [address]OY: 05/08/2018 Secondary NOT GIVENUNK [place] Insurance:SELF PAY [facility] Number: Effective Repository Date:2018-04-10 04/09/2018 ALISON L Primary Insurance:MMO ALISON L [place] [id number] MEDICAREPolicy MILLERDOB: [facility] Number: [id number], [place] [id number] Repository [address]Cql: ([phone]) Date:6473-22-70SJ [phone] () [address] [place] [phone]: 04/09/2018 Secondary NOT GIVENUNK [place] Insurance:SELF PAY [facility] Number: Effective Repository Date:2018-04-09 04/09/2018 ALISON L Primary Insurance:MMO ALISON L [place] [id number] MEDICAREPolicy MILLERDOB: [facility] Number: [id number], [place] [id number] Repository [address]Jtw: (330) Date:3729-27-32TH [phone] (HP) [address] [place] [id number]: 04/09/2018 Secondary NOT GIVENUNK [place] Insurance:SELF PAY [facility] Number: Effective Repository Date:2018-04-09 01/08/2018 ALISON L Primary Insurance:MMO ALISON L [place] [id number] MEDICAREPolicy MILLERDOB: [facility] Number: [id number], [place] [id number] Repository [address]Ezn: (330) Date:8402-72-39JD [phone] (HP) [address] [place] [phone]: 01/08/2018 Secondary NOT GIVENUNK [place] Insurance:SELF PAY [facility] Number: Effective Repository Date:2018-01-08 01/07/2018 ALISON L Primary Insurance:MMO ALISON L [place] [id number] MEDICAREPolicy MILLERDOB: [facility] Number: [id number], [place] [id number] Repository [address]Mpa: (330) Date:3432-02-82NP [phone] (HP) [address] [place] [phone]: 01/07/2018 Secondary NOT GIVENUNK [place] Insurance:SELF PAY [facility] Number: Effective Repository Date:2018-01-07 01/07/2018 ALISON L Primary Insurance:MMO ALISON L [place] [id number] [facility] Number: [id number], [place] [id number] Repository [address]Zox: (330) Date:1246-04-00WA [phone] () [address] [place] [phone]: 01/07/2018 Secondary NOT GIVENUNK [place] Insurance:SELF PAY [facility] Number: Effective Repository Date:2018-01-07 01/03/2018 Alsion L Primary Insurance:MMO Alison L [place] [id number] MEDICAREPolicy MillerDOB: [facility] Number: [id number], [place] [id number] Repository [address]Cjw: (330) Date:7405-60-34BQ [phone] () [address] [place] [phone]: 01/03/2018 Secondary NOT GIVENUNK [place] Insurance:SELF PAY [facility] Number: Effective Repository Date:2018-01-03 08/13/2017 ALISON L Primary [facility] MILLERDOB: Insurance:MEDICAL MILLERDOB: [facility] [id number] [place] MEDICARE[place] [id number] Repository LEICHTY Number: [address] [place], [place] [id number] [place], [place] [address]Oxe: (471) Date:2017-08-13Tel: [id number] [phone] ()Tel: (021) Name:NICK Quach () () [id number], [place] 000-0000 () 50[address]NL:
== END ==
PROVIDERS: Family Provider Family Medicine; PCP Family Medicine; Referring Provider Orthopaedic Surgery; Visit Provider Orthopaedic Surgery
DX: M75.31 Calcific tendinitis of right shoulder (principal); M75.81 Other shoulder lesions, right shoulder; S46.811A Strain of other muscles, fascia and tendons at shoulder and upper arm level, right arm, initial encounter; X58.XXXA Exposure to other specified factors, initial encounter; M19.011 Primary osteoarthritis, right shoulder
CPT/HCPCS: 73221

== ENCOUNTER → 2018-10-02 11:42 | Outpatient (CLI) | payer MEDICARE, SELFPAY ==
[2018-10-02 11:07] VITALS: BMI 29.8
[2018-10-02 12:35] LABS: Hemoglobin A1c 7.6 % (4.2-6.3)
== END ==
PROVIDERS: Family Provider Family Medicine; PCP Family Medicine; Visit Provider Family Medicine
DX: E11.9 Type 2 diabetes mellitus without complications (principal)
CPT/HCPCS: 36415; 83036

== ENCOUNTER → 2019-01-09 08:38 | Outpatient (CLI) | payer MEDICARE, SELFPAY ==
[2019-01-08 14:16] VITALS: BMI 29.8
[2019-01-09 13:09] LABS: Creatinine, Urine (random) < 13.00 mg/dL (NO RANGE EST.)
[2019-01-09 13:11] LABS: ALB/GLOB Ratio 1.4 RATIO (0.9-2.4); AST(SGOT) 11 U/L (15-37); Alanine Aminotransfer ALT/SGPT 29 U/L (13-56); Albumin, Serum 3.8 g/dL (3.2-5.0); Alkaline Phosphatase 65 U/L (45-117); Anion Gap 8 (5-15); BUN 24 mg/dL (7-18); BUN/Creat Ratio 39.3 RATIO (10-20); Calcium,Total 9.5 mg/dL (8.5-10.1); Chloride 107 mmol/L (98-107); Cholesterol 219 mg/dL (200); Creatinine, Serum 0.61 mg/dL (0.55-1.02); EST Glomerular Filtration Rate 103 mL/min (>60); Est Glom Filt Rate - Afr Amer 125 mL/min (>60); Globulin 2.8 g/dL (2.2-4.2); Glucose 156 mg/dL (74-106); High Density Lipoprotein 59 mg/dL; Potassium 3.6 mmol/L (3.5-5.1); Protein, Total 6.6 g/dL (6.4-8.2); Sodium Level 141 mmol/L (136-145); Thyroid Stim Hormone (TSH) 7.53 uIU/mL (0.358-3.74); Triglycerides 212 mg/dL; Very Low Density Lipoprotein 42 mg/dL (5-40)
== END ==
PROVIDERS: Family Provider Family Medicine; PCP Family Medicine; Visit Provider Family Medicine
DX: E11.9 Type 2 diabetes mellitus without complications (principal); I10 Essential (primary) hypertension
CPT/HCPCS: 36415; 80053; 80061; 82043; 82570; 84443

== ENCOUNTER → 2019-07-14 15:01 | Outpatient (CLI) | payer MEDICARE, SELFPAY ==
[2019-07-14 14:27] VITALS: BMI 29.4
[2019-07-14 18:08] LABS: Cholesterol 227 mg/dL (200); High Density Lipoprotein 45 mg/dL; Triglycerides 517 mg/dL
== END ==
PROVIDERS: Family Provider Family Medicine; PCP Family Medicine; Referring Provider Family Medicine; Visit Provider Family Medicine
DX: E11.9 Type 2 diabetes mellitus without complications (principal); I10 Essential (primary) hypertension
CPT/HCPCS: 36415; 80061; 83036

== ENCOUNTER → 2019-07-23 08:52 | Outpatient (CLI) | payer MEDICARE, SELFPAY ==
[2019-07-14 14:27] VITALS: BMI 29.4
[2019-07-23 13:04] LABS: Cholesterol 223 mg/dL (200); High Density Lipoprotein 46 mg/dL; Triglycerides 273 mg/dL; Very Low Density Lipoprotein 55 mg/dL (5-40)
== END ==
PROVIDERS: PCP Family Medicine; Referring Provider Family Medicine; Visit Provider Family Medicine
DX: E11.9 Type 2 diabetes mellitus without complications (principal)
CPT/HCPCS: 36415; 80061

== ENCOUNTER → 2020-04-13 12:21 | Outpatient (CLI) | payer MEDICARE, SELFPAY ==
[2020-04-13 11:48] VITALS: BMI 27.8
[2020-04-13 15:33] LABS: ALB/GLOB Ratio 1.2 RATIO (0.9-2.4); AST(SGOT) 15 U/L (15-37); Alanine Aminotransfer ALT/SGPT 30 U/L (13-56); Albumin, Serum 3.9 g/dL (3.2-5.0); Alkaline Phosphatase 75 U/L (45-117); Anion Gap 7 (5-15); BUN 19 mg/dL (7-18); BUN/Creat Ratio 30.1 RATIO (10-20); Chloride 107 mmol/L (98-107); Cholesterol 230 mg/dL (200); Creatinine, Serum 0.63 mg/dL (0.55-1.02); EST Glomerular Filtration Rate 99 mL/min (>60); Est Glom Filt Rate - Afr Amer 120 mL/min (>60); Globulin 3.3 g/dL (2.2-4.2); Glucose 209 mg/dL (74-106); High Density Lipoprotein 50 mg/dL; Potassium 4.2 mmol/L (3.5-5.1); Protein, Total 7.2 g/dL (6.4-8.2); Sodium Level 141 mmol/L (136-145); Triglycerides 347 mg/dL; Very Low Density Lipoprotein 69 mg/dL (5-40)
[2020-04-13 16:01] LABS: Microalbumin,Random Urine 11.1 mg/L (NO RANGE EST.); Microalbumin:Creatinine Ratio 20.6 mg/g CRE (<30 mg/g CRE)
== END ==
PROVIDERS: PCP Family Medicine; Referring Provider Family Medicine; Visit Provider Family Medicine
DX: I10 Essential (primary) hypertension (principal); E11.9 Type 2 diabetes mellitus without complications
CPT/HCPCS: 36415; 80053; 80061; 82043; 82570

== ENCOUNTER 2020-09-15 11:30 | Outpatient (RCR) | payer MEDICARE, SELFPAY ==
--- NOTE | 2020-09-15 12:03 | HP.PTDCSUM ---
It has been my pleasure to treat LISY MCKINNON referred by Dr. Adele Hernandez DO, with the diagnosis of L shoulder pain for a total of 5 visit(s). Discharge Date: Please see the following information for a summary of their discharge status. Subjective: I dont have pain unless I move it wrong L shoulder Pain Intensity (Out of 10): 1 % Improvement: 60 Objective/Function: Pt reports 0/10 pain uless she moves it wrong (5/10). L shoulder ROM: abd= 102, flex= 115. L shoulder MMT: 4/5 throughout. Pt is I with HEP Goal 1:: Decrease L shoulder pain x 50% to aid with sleep Goal Progress: Goal Met Goal 2:: Increase L shoulder flex and abd ROM x 20 degrees to aid with IADL's Goal Progress: Goal Met Goal 3:: Increase L shoulder strength x 1 grade to aid with increasing the ease of getting dressed Goal Progress: Goal Met Goal 4:: with HEP Goal Progress: Goal Met Plan: Discharge If there are questions or concerns regarding this patient's physical therapy, please feel free to call me at [phone]. Thank you for the referral of this patient. Sincerely, Pilo Melendez, PT, ATC
--- NOTE | 2020-09-15 12:04 | HP.PTEVAL ---
Patient's Visit Information LISY MCKINNON is a 69 year old F referred to Physical Therapy by Dr. Adele Hernandez DO with a diagnosis of L shoulder pain. Date of Evaluation: 08/31/20 Physical Therapist: Pilo Melendez, PT, ATC - Visit Plan Frequency: 2x /Week Duration: 2 Weeks Plan: Discharge - Subjective Pt reports L shoulder has been sore for at least 6 months. Pt reports her pain started and has progressively worsened over this time span. Pt reports her pain had an insidious onset in nature. Pt reports she is R hand dominant. Pt reports difficulty with donning sclothes, showering, donning her seatbelt, and reaching out in front of her to pick something up really increases her pain. Pt reports sleep difficulty at this time secondary to pain. No tingling or numbness at this time. Pt reports occsaional sleep difficulty secondary to pain. Pt reports most of her pain is located in her L upper arm near the deltoid insertion site. 1/10 pain at rest, 10/10 pain at worst (when she reaches and attempts to pich something up with L UE - Pain L shoulder Pain Intensity (Out of 10): 1 Pain Intensity Range: 10 - Objective Neuro: B UE sensation is WNL to light touch. B bicepital reflex= 2/3. Palpation: Pt is very tender along L Supraspinatus, and LHB tenson. No obvious deformity. ROM: R shoulder flex= 155, abd= 125, ER= 55, IR WNL; L shoulder flex= 95, abd= 70, ER= 35, IR moderately limited. MMT: L shoulder is 3-/5 and painful. R shoulder 4+/5 throughout. Special tests: Pos empty can test - Goals Goal 1:: Decrease L shoulder pain x 50% to aid with sleep Goal Time Frame: 4-6 Weeks Goal 2:: Increase L shoulder flex and abd ROM x 20 degrees to aid with IADL's Goal Time Frame: 4-6 Weeks Goal 3:: Increase L shoulder strength x 1 grade to aid with increasing the ease of getting dressed Goal Time Frame: 4-6 Weeks Goal 4:: with HEP Goal Time Frame: 4-6 Weeks - Rehabilitation Potential Physical Therapy Diagnosis: L shoulder pain, weakness, and limited ROM secondary to L shoulder rot cuff syndrome Rehabilitation Potential: Good - Anticipated Interventions Patient/Client Instruction: Educate patient on: Condition, Plan of Care For the Purpose of:: To improve self management Therapeutic Exercise to Include: Strength training, Body mechanics, Postural training, Flexibilty training, Active ROM, Scapular Strength/Stabilization For the Purpose of:: To decrease pain, To increase ROM, To improve muscle performance and motor function Cryotherapy (ice pack, ice massage): Yes For the Purpose of:: To decrease pain Thank you for the opportunity to evaluate your patient. For Medicare and Medicare HMO plans, please review the plan of care and approve it. It will need to be FAXED BACK to us at [phone] for Medicare purposes. For Medicare only, by signing this I certify the plan of care. Please let me know if there are questions or concerns regarding this plan of care. Physician Signature: Date:
== END 2020-09-15 12:47 | disposition home or self-care (01) ==
LOC: PT 11:30
PROVIDERS: PCP Family Medicine; Referring Provider Orthopaedic Surgery; Visit Provider Orthopaedic Surgery
DX: M75.32 Calcific tendinitis of left shoulder (principal); M75.102 Unspecified rotator cuff tear or rupture of left shoulder, not specified as traumatic
CPT/HCPCS: 97110; 97161; 97164

== ENCOUNTER → 2020-10-12 11:25 | Outpatient (CLI) | payer MEDICARE, SELFPAY ==
[2020-10-12 13:35] LABS: Cholesterol 238 mg/dL (200); High Density Lipoprotein 52 mg/dL; T4 Free Direct 1.27 ng/dL (0.76-1.46); Triglycerides 322 mg/dL; Very Low Density Lipoprotein 64 mg/dL (5-40)
== END ==
PROVIDERS: PCP Family Medicine; Referring Provider Family Medicine; Visit Provider Family Medicine
DX: I10 Essential (primary) hypertension (principal)
CPT/HCPCS: 36415; 80061; 84439; 84443

== ENCOUNTER 2021-06-14 12:00 | Outpatient (RCR) | payer MEDICARE, SELFPAY ==
--- NOTE | 2021-05-19 15:01 | HP.PTEVAL_ITS ---
Patient's Visit Information LISY MCKINNON is a 70 year old F referred to Physical Therapy by Dr. Demetri Payne DO with a diagnosis of CERVICAL RADICULOPATHY, L SHLD STIFFNESS, IMPINGEMENT & CALCIFIC TENDINITIS. Date of Evaluation: 05/19/21 Physical Therapist: Kira Mata, PT, Cert MDT - Visit Plan Frequency: 2-3x /Week Duration: 4-6 Weeks Plan: LEFT NECK/SHLD US, LEFT SHLD MAN THERAPY, POSTURE CORRECTION/STRENGTHENING, INSTRUCTION IN APPROPRIATE BODY MECHANICS AND ACTIVITY MODIFICATIONS. MEGHNA UE ROM, STRETCHING AND STRENGTHENING. HEP INSTRUCTION. - Subjective Diagnosis: CERVICAL RADICULOPATHY, L SHLD STIFFNESS, CALCIFIC TENDINITIS AND IMPINGEMENT. 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 6 MONTHS OLD. SON - 45 YO AND DAUGHTER 23 YO LIVES WITH HER TOO. HAS HELP WITH LIFTING AND REACHING ACTIVITIES. Present symptoms: LEFT NECK, UPPER TRAP, AND SHLD PAIN. PAIN RADIATES DOWN TO ELBOW BUT OCCASSIONALLY DOWN INTO HAND. INTERMITTENT NUMBNESS AND TINGLING IN HAND/F INGERS. NO RIGHT UE SX'S. HAD TREATMENT HERE IN PT FOR THE RIGHT UE IN THE PAST AND PATIENT REPORTS THIS FEELS ABOUT THE SAME ON THE LEFT NOW. PLEASE FIX THIS ONE TOO. PATIENT REPORTS THERE ARE TIMES SHE CAN'T TURN HER NECK VERY FAR. Present since: ABOUT A YEAR AGO. Pain Scale: Worst - 7/10 Least - 1/10. Currently: /. Commenced as a result of: NO APPARENT REASON. Symptoms at onset: LEFT SHLD. Worse: HOLDING THE BABY (ABOUT 16 LBS), REACHING TO GET THINGS OUT OF CUPBOARD OR REFRIGERATOR. SPORATIC AT TIIMES. IN BED TRYING TO SLEEP. Better: HOLDING L ARM AT SIDE. IBUPROFEN. Disturbed sleep: YES. Previous history/Previous treatment: UNREMARKABLE. This episode: 3 L SHLD CORTISONE SHOTS - AUG, OCTOBER AND LAST WEEK. THE FIRST SHOT DID NOT HELP. THE SECOND ONE DID. THE THIRD ONE HELPED SOME. REPORTS SHE TRIED PT IN AUGUST BUT THE EX'S MADE IT HURT MORE. Dizziness: NO. Tinnitis: NO. Nausea: YES - LAST WEEK. Shortness of Breath: NO. Difficulty Swollowing: NO. Gait: NORMAL. Accidents: NO. Unexplained weight loss: NO. Imaging: RECENT NECK AND LEFT SHLD EX'S. EXAM: XR CERVICAL SPINE, 2 OR 3 VIEWS. CLINICAL INDICATION: pain. TECHNIQUE: Frontal and lateral views of the cervical spine. This report. was created using [employer] report [employer] technology. COMPARISON: None. FINDINGS: VERTEBRAE: There is mild straightening of the normal cervical lordosis. This can suggest neck strain. There is endplate spondylosis of the. vertebral body. Preserved vertebral body height. No acute fracture. No. significant facet arthropathy. DISC SPACES: Unremarkable. Disc spaces are maintained. SOFT TISSUES: Unremarkable. No prevertebral soft tissue widening. LUNG APICES: Clear. RAD/Cerv Spine 2 or 3 Views. IMPRESSION: . There is mild straightening of the normal cervical lordosis. This can. suggest neck strain. . Electronically Signed: Pilo Hall MD. at 15:57 EST. STUDY: XR Shoulder Min 2 Views. REASON FOR EXAM: Female, 70 years old. PAIN. TECHNIQUE: XR Shoulder Min 2 Views. COMPARISON: 08/02/2020. . FINDINGS: Normal glenohumeral articulation. Normal acromioclavicular joint. Normal. acromion. Stable sclerotic focus in the humeral head. The soft tissue structures are unremarkable. Normal visualized pulmonary apex. . RAD/Shoulder min 2 Views. IMPRESSION: There are no acute findings of the shoulder. . Electronically Signed: Pilo Hall MD. at 15:42 EST - Objective Sitting Posture/Standing Posture: POOR. FH. RS'S. INCREASED KYPHOSIS. Active Correction of posture: WORSE. Other Observations: THIS PATIENT AMBULATES INDEP'LY INTO PT TODAY WITH NO GROSS DEVICATIONS NOTED. Motor deficit: RIGHT UE GROSSLY 4-/5 WITH MMT'ING. LEFT SHLD 3-/5, ELBOW 4-/5. RIGHT WAITER/WAITRESS INFORMAL STRENGTH 45 LBS, LEFT 23 LBS. Sensory deficit: MEGHNA UE LIGHT TOUCH SENSATION IS GROSSLY INTACT AND SYMMETRICAL BUT THERE IS SOME HYPERSENSATIVITY IN THE LEFT UPPER LATERAL ARM AND SHLD COMPARED TO RIGHT. ROM deficit: 125 DEG LEFT SHLD ACTIVE FLEXION IN SITTING AND 134 DEGREES SCAPTION. 142 DEG PASSIVE FLEXION L SHLD IN LYING. 48 DEG L SHLD PASSIVE IR AND 5 DEG PASSIVE ER IN SUPINE WITH 70 DEG ABD. PATIENT WITH ERP WITH L SHLD ROM TESTING ALL PLANES. Reflexes: 2/3 MEGHNA UE'S. Dural Signs: POSITIVE LEFT UE. Cervical Mvmt Loss: Flex: NIL. Pro: NIL. Ext: MOD TO CROW. Ret: CROW. RSB: MOD. LSB: MOD. R Rot: CROW. L Rot: MOD. PATIENT C/O INCREASED SORENESS WITH NECK ROM TESTING ALL PLANES EXCEPT FLEX AND PROTRACTION. Postural strength: POOR. Palpation: TENDERNESS WITH PALPATION OF THE CERVICAL SPINE, LEFT UT, L SHLD AND LEFT LATERAL AND ANTERIOR UPPER ARM. TREATMENT: NEUROMUSCULAR REEDUCATION - RETRAINING OF MVMT AND POSTURE FOR SITTING, LYING AND STANDING ACTIVITIES. INTIATED HEP WITH SUPINE WAND FLEX, STANDING TABLE WALK AWAYS INTO SHLD FLEX AND STANDING WALL SLIDES INTO FLEX X 10, 3 TIMES A DAY TOLERATED. - Balance/Special Test Scores Oswestry Neck Score: 13 Quick DASH Score: 47.7250 - Goals Goal 1:: DECREASE C/O LEFT NECK, SHLD AND UE SX'S. Goal Time Frame: 4-6 Weeks Goal 2:: IMPROVE PERSONAL CARE, LIFTING, READING, SLEEP, WORK, DRIVING AND RECREATIONAL FUNCTION. Goal Time Frame: 4-6 Weeks Goal 3:: INSTRUCT IN PROPHYLAXIS Goal Time Frame: 4-6 Weeks Goal Time Frame: 4-6 Weeks - Anticipated Interventions Patient/Client Instruction: Educate patient on: Condition, Plan of Care, Risk Factors For the Purpose of:: To improve self management Therapeutic Exercise to Include: Strength training, Body mechanics, Postural training, Flexibilty training, Neuromotor development, Passive ROM, Active ROM, Scapular Strength/Stabilization For the Purpose of:: To decrease pain, To increase ROM, To improve muscle performance and motor function, To increase tolerance to activity/condition/position, To improve ability of physical actions for home/community/work/leisure Manual Therapy Techniques to Include: Mobilization, Passive ROM For the Purpose of:: To decrease pain, To increase ROM, To improve nutrient delivery to tissue Cryotherapy (ice pack, ice massage): Yes Thermo therapy (hot pack): Yes Ultrasound (thermal/non thermal): Yes For the Purpose of:: To decrease pain, To improve nutrient delivery to tissue Thank you for the opportunity to evaluate your patient. For Medicare and Medicare HMO plans, please review the plan of care and approve it. It will need to be FAXED BACK to us at [phone] for Medicare purposes. For Medicare only, by signing this I certify the plan of care. Please let me know if there are questions or concerns regarding this plan of care. Physician Signature: Date:
--- NOTE | 2021-06-14 13:06 | HP.PTDCSUM ---
It has been my pleasure to treat LISY MCKINNON referred by Dr. Demetri Payne DO, with the diagnosis of CERVICAL RADICULOPATHY, L SHLD STIFFNESS, IMPINGEMENT & CALCIFIC TENDINITIS for a total of 10 visit(s). Discharge Date: 06/14/21 Please see the following information for a summary of their discharge status. Subjective: I AM SLEEPING A WHOLE LOT BETTER AND IT ISN'T SORE IT WAS BEFORE. PATIENT REPORTS SHE CAN USUALLY REACH AND GRAB AND PICK THINGS UP WITHOUT WINCING IN PAIN NOW. IT ISN'T PAINFUL LIFTING AND HOLDING THE BABY NOW EITHER. PATIENT REPORTS SHE NOTICES THAT TRYING TO PUT HER SEAT BELT ON WITH HER LEFT UE, PUTTING HER COAT ON AND OFF AND PUTTING A T-SHIRT ON ALL ARE STILL DIFFICULT AND SOMETIMES PAINFUL. STATES THAT THE JOVITA IS WORKING WELL AT HOME. HAS SOME QUESTIONS ABOUT HER HOME EX'S THOUGH. Left shldr Pain Intensity (Out of 10): 0 % Improvement: 50 Objective/Function: PATIENT WAS SEEN TODAY FOR RE-ASSESSMENT OF PROGRESS TOWARD THE SET PT GOALS AND THE NEED FOR FURTHER PHYSICAL THERAPY VS READINESS FOR DISCHARGE. PATIENT IS MAKING SLOW PROGRESS TOWARD ALL PT GOALS AND IS A GOOD CANDIDATE TO CONTINUE PT BASED ON PROGRESS MADE AND ROOM FOR FURTHER IMPROVEMENT BUT SHE HAS A HIGH CO-PAY FOR PT AND WOULD LIKE TO TRY TO CONTINUE ON HER OWN WITH HER CURRENT HEP TO SEE IF SHE CAN KEEP MAKING PROGRSS. THIS PT RECOMMENDS PATIENT FOLLOW UP WITH DR. PAYNE IN 3-4 WEEKS IF HER PROGRESS STOPS OR SOONER IF SHE WORSENS. PATIENT IS AGREEABLE. UPON EXAM TODAY: Motor deficit: RIGHT UE GROSSLY 4-/5 WITH MMT'ING. LEFT SHLD 3-/5, ELBOW 4-/5. RIGHT AIR POLLUTION INSPECTOR STRENGTH 45 LBS, LEFT 35 LBS. Sensory deficit: MEGHNA UE LIGHT TOUCH SENSATION IS GROSSLY INTACT AND SYMMETRICAL BUT THERE IS SOME HYPERSENSATIVITY IN THE LEFT MID LATERAL UPPER ARM COMPARED TO RIGHT. ROM deficit: 134 DEG LEFT SHLD ACTIVE FLEXION IN SITTING AND 140 DEGREES SCAPTION. 156 DEG PASSIVE FLEXION L SHLD IN LYING. 55 DEG L SHLD PASSIVE IR AND 40 DEG PASSIVE ER IN SUPINE WITH 70 DEG ABD. PATIENT WITH ERP WITH L SHLD ROM TESTING ALL PLANES. Reflexes: 2/3 MEGHNA UE'S. Dural Signs: POSITIVE LEFT UE. Cervical Mvmt Loss: Flex: NIL. Pro: NIL. Ext: MOD TO CROW. Ret: CROW. RSB: MIN. LSB: MIN. R Rot: MOD. L Rot: MIN TO MOD. PATIENT REPORTS TIGHTNESS BUT NOT PAIN WITH CERVICAL ROM TESTING TODAY. Postural strength: POOR. Palpation: MILD TENDERNESS WITH PALPATION OF THE CERVICAL SPINE, LEFT UT, L SHLD AND LEFT LATERAL ARM. OTHER: REVIEWED HEP TODAY FOR PROPER TECHNIQUE AND PATIENT DEMO'S GOOD TECHNIQUE WITH MINIMAL CUEING. Goal 1:: DECREASE C/O LEFT NECK, SHLD AND UE SX'S. Goal Progress: Progressing Goal 2:: IMPROVE PERSONAL CARE, LIFTING, READING, SLEEP, WORK, DRIVING AND RECREATIONAL FUNCTION. Goal Progress: Progressing Goal 3:: INSTRUCT IN PROPHYLAXIS Goal Progress: Progressing Plan: D/C TO INDEP HEP PER PATIENT REQUEST. If there are questions or concerns regarding this patient's physical therapy, please feel free to call me at [phone]. Thank you for the referral of this patient. Sincerely, Kira Mata, PT, Cert MDT Balance/Gait/Functional tests - Balance/Special Test Scores Oswestry Neck Score: 13 Quick DASH Score: 25.0000
== END 2021-06-14 19:00 | disposition home or self-care (01) ==
LOC: PT 12:00
PROVIDERS: PCP Family Medicine; Referring Provider Orthopaedic Surgery; Visit Provider Orthopaedic Surgery
DX: M25.612 Stiffness of left shoulder, not elsewhere classified (principal); M75.32 Calcific tendinitis of left shoulder; M54.12 Radiculopathy, cervical region
CPT/HCPCS: 97035; 97110; 97112; 97140; 97162; 97164; 97530

== ENCOUNTER 2021-07-26 11:58 | Outpatient (CLI) | payer MEDICARE, SELFPAY ==
[2021-07-26 15:13] LABS: Absolute Lymphocyte Count 2.17 X10^3/uL (0.83-4.51); Absolute Neutrophil Count 2.6 X10^3/uL (2.0-7.7); Basophil# 0.02 X10^3/uL; Basophil% 0.4 % (0-1); Eosinophils% 5.5 % (0-5); Hematocrit 44.3 % (37-47); Hemoglobin 14.8 g/dL (12.0-15.0); Lymphocyte # 2.17 X10^3/ul (0.83-4.51); Lymphocyte % 39.7 % (19-41); Mean Corp Hgb Conc 33.4 g/dL (32-36); Mean Corpuscular Volume 92.7 fL (81-99); Mean Platelet Vol. 10.6 fl (6.2-12.0); Monocyte# 0.39 X10^3/uL; Monocyte% 7.1 % (0-10); NRBC Flagged by Analyzer 0 % (0-5); Neutrophil # 2.58 X10^3/uL (2.7-7.7); Neutrophil % 47.1 % (47-70); Platelet Count 240 K/mm3 (150-450); RBC Distribution Width CV 12.3 % (11.6-14.6); RBC Distribution Width SD 42.3 fl (35.1-43.9); Red Blood Count 4.78 M/mm3 (4.2-5.4); White Blood Count 5.5 K/mm3 (4.4-11.0)
[2021-07-26 15:36] LABS: ALB/GLOB Ratio 1.2 RATIO (0.9-2.4); AST(SGOT) 12 U/L (15-37); Alanine Aminotransfer ALT/SGPT 27 U/L (13-56); Albumin, Serum 4.1 g/dL (3.2-5.0); Alkaline Phosphatase 69 U/L (45-117); Anion Gap 7 (5-15); BUN 22 mg/dL (7-18); BUN/Creat Ratio 37.4 RATIO (10-20); Calcium,Total 10.5 mg/dL (8.5-10.1); Chloride 102 mmol/L (98-107); Creatinine, Serum 0.59 mg/dL (0.55-1.02); EST Glomerular Filtration Rate 107 mL/min (>60); Est Glom Filt Rate - Afr Amer 130 mL/min (>60); Globulin 3.3 g/dL (2.2-4.2); Glucose 171 mg/dL (74-106); Potassium 3.8 mmol/L (3.5-5.1); Protein, Total 7.4 g/dL (6.4-8.2); Sodium Level 139 mmol/L (136-145)
== END 2021-07-26 23:59 | disposition short-term general hospital (02) ==
LOC: BIMLAB 11:59
PROVIDERS: PCP Family Medicine; Referring Provider Family Medicine; Visit Provider Family Medicine
DX: E03.9 Hypothyroidism, unspecified (principal); E11.9 Type 2 diabetes mellitus without complications
CPT/HCPCS: 36415; 80053; 85025

== ENCOUNTER → 2021-11-01 | Outpatient (CLI) | payer MEDICARE, SELFPAY ==
--- NOTE | 2021-11-01 13:39 | BI_ITS ---
MAMMOGRAPHY - BILATERAL SCREENING REASON FOR EXAM: Female, 71 years old. Routine annual screening examination. PERTINENT HISTORY: Non-contributory. TECHNIQUE: Digital bilateral breast mitesh (3D mammographic acquisition) in the CC and MLO projections. 2-D mediolateral oblique (MLO) and craniocaudad (CC) views of both breasts were obtained. CAD: Full Field Digital Mammography with Computer Added Detection was performed. COMPARISON: Comparison is made with prior abdomen examination dated 02/09/2016. FINDINGS: Breast Composition: There are scattered areas of fibroglandular density. There are no dominant masses or suspicious calcifications. The previously seen 8 mm well-defined nodule in the upper lateral aspect of the left breast is not seen at this time. Stable macrocalcification in the left retroareolar areolar region. No other significant abnormalities are identified. BI/SCRN MAMM (CAD)W/MITESH BILAT IMPRESSION: Stable bilateral screening mammogram. Yearly follow-up mammogram recommended. (A) ASSESSMENT CATEGORY: BIRADS Category 2: Benign. A letter regarding these results will be sent to the patient by the facility within 30 days. Approximately 10% of breast cancers are not detected by mammography. A normal mammogram should not delay biopsy of a clinically suspicious abnormality. [id number] Electronically Signed: Favio Vera MD at 14:28 EDT ,
== END | disposition home or self-care (01) ==
LOC: OPBI 13:38
PROVIDERS: PCP Family Medicine; Referring Provider Family Medicine; Visit Provider Family Medicine
DX: Z12.31 Encounter for screening mammogram for malignant neoplasm of breast (principal)
CPT/HCPCS: 77063; 77067

== ENCOUNTER → 2021-11-06 | Outpatient (CLI) | payer MEDICARE, SELFPAY ==
--- NOTE | 2021-11-06 12:46 | MRI_ITS ---
EXAM: MR PELVIS WITHOUT AND WITH INTRAVENOUS CONTRAST CLINICAL INDICATION: BLADDER NECK MASS TECHNIQUE: Multiplanar and multisequence MR images of the pelvis without and with intravenous contrast. This report was created using [employer] report generation technology. CONTRAST: IV 13mL DOTAREM COMPARISON: None. FINDINGS: INTRAPERITONEAL SPACE: No adnexal mass or free pelvic fluid. BLADDER: A 2.2 cm contrast enhancing mass noted at the neck of the urinary bladder with well-defined borders consistent with benign or malignant neoplasm. No discrete involvement of the adjacent vagina or pelvic diaphragm. REPRODUCTIVE: Uterus is absent. BONES/JOINTS: Unremarkable. No suspicious lytic or blastic abnormality. SOFT TISSUES: Unremarkable. No pelvic wall hernia. LYMPH NODES: Unremarkable. No enlarged lymph nodes. MRI/Pelvis W/WO Contrast IMPRESSION: 2.2 cm well-defined contrast-enhancing mass involving the neck of the urinary bladder which may represent benign or malignant neoplasm. No evidence of extension to the vagina or floor of the pelvis. Electronically Signed: Joseluis Dickerson MD at 9:30 EDT ,
[2021-11-06 13:10] LABS: CREATININE FINGERSTICK < 0.6 mg/dL (0.55-1.02); EGFR FINGERSTICK > 60.0000 mL/min (>60)
== END | disposition home or self-care (01) ==
PROVIDERS: PCP Family Medicine; Visit Provider Urology
DX: R19.00 Intra-abdominal and pelvic swelling, mass and lump, unspecified site (principal)
CPT/HCPCS: 72197; A9575

== ENCOUNTER → 2021-11-22 | Outpatient (CLI) | payer MEDICARE, SELFPAY ==
[2021-11-22 16:06] LABS: ALB/GLOB Ratio 1.2 RATIO (0.9-2.4); AST(SGOT) 12 U/L (15-37); Alanine Aminotransfer ALT/SGPT 29 U/L (13-56); Albumin, Serum 3.9 g/dL (3.2-5.0); Alkaline Phosphatase 70 U/L (45-117); Anion Gap 10 (5-15); BUN 27 mg/dL (7-18); BUN/Creat Ratio 43.1 RATIO (10-20); Calcium,Total 10.1 mg/dL (8.5-10.1); Chloride 105 mmol/L (98-107); Creatinine, Serum 0.63 mg/dL (0.55-1.02); EST Glomerular Filtration Rate 100 mL/min (>60); Est Glom Filt Rate - Afr Amer 121 mL/min (>60); Globulin 3.3 g/dL (2.2-4.2); Glucose 193 mg/dL (74-106); Potassium 3.5 mmol/L (3.5-5.1); Protein, Total 7.2 g/dL (6.4-8.2); Sodium Level 140 mmol/L (136-145); Thyroid Stim Hormone (TSH) 0.28 uIU/mL (0.358-3.74)
== END | disposition home or self-care (01) ==
LOC: BIMLAB 14:45
PROVIDERS: PCP Family Medicine; Referring Provider Nurse Practitioner Family; Visit Provider Nurse Practitioner Family
DX: E01.0 Iodine-deficiency related diffuse (endemic) goiter (principal)
CPT/HCPCS: 36415; 80053; 84443

== ENCOUNTER → 2021-12-05 | Outpatient (CLI) | payer MEDICARE, SELFPAY ==
--- NOTE | 2021-12-05 13:20 | US_ITS ---
STUDY: THYROID ULTRASOUND REASON FOR EXAM: Female, 71 years old. Right thyromegaly TECHNIQUE: Ultrasound evaluation of the thyroid was performed with real-time and static alex-scale imaging. COMPARISON: None. FINDINGS: RIGHT LOBE: The right lobe of the thyroid gland measures 3.8 cm x 1 cm x 0.9 cm. There is a homogeneous echotexture. There are no demonstrated solid, cystic or complex lesions. LEFT LOBE: The left lobe of the thyroid gland measures 2.6 cm x 0.6 cm x 0.6 cm. There is a homogeneous echotexture. There are no demonstrated solid, cystic or complex lesions. ISTHMUS: The isthmus measures 2 mm. Incidental note is made of a 1.5 cm x 1.1 cm x 0.9 cm left cervical lymph node. US/Thyroid IMPRESSION: Normal ultrasound examination of the thyroid. Incidental note is made of a 1.5 cm x 1.1 cm x 0.9 cm left cervical lymph node. Electronically Signed: Favio Vera MD at 15:53 EDT ,
== END | disposition home or self-care (01) ==
LOC: US 13:19
PROVIDERS: PCP Family Medicine; Referring Provider Nurse Practitioner Family; Visit Provider Nurse Practitioner Family
DX: E01.0 Iodine-deficiency related diffuse (endemic) goiter (principal)
CPT/HCPCS: 76536

== ENCOUNTER → 2022-04-05 | Outpatient (CLI) | payer MEDICARE, SELFPAY ==
[2022-04-05 14:52] LABS: Mucous, Urine 0 SEEN /hpf (<or=2+)
[2022-04-05 16:44] LABS: Color, Urine Yellow (Yellow); Glucose, Dipstick 1000 mg/dl (Normal); Ketone-Dipstick 50 mg/dl (Negative); Leukocyte Esterase-Dipstick Negative /ul (Negative); Nitrite-Dipstick Positive (Negative); Occult Blood-Urine 10 /ul (Negative); Protein-Dipstick Negative (Negative); Specific Gravity, Urine 1.015 (1.002-1.030); Urine Bilirubin Dipstick Negative (Negative); Urine Clarity Clear (Clear); Urine Urobilinogen Normal (Normal)
[2022-04-05 17:45] LABS: Bacteria 4+ /hpf (None Seen); Red Blood Cells-Urine 0-5 SEEN /hpf (0-5); Squamous Epithelial Cells - UA 0-5 SEEN /hpf (5-10); White Blood Cells 0-5 SEEN /hpf (0-5)
== END | disposition home or self-care (01) ==
LOC: LABSPEC 14:50
PROVIDERS: PCP Family Medicine; Referring Provider Physician Assistant; Visit Provider Physician Assistant
DX: R30.0 Dysuria (principal)
CPT/HCPCS: 81001

== ENCOUNTER 2022-05-10 07:39 | Observation (INO) | payer MEDICARE, SELFPAY ==
--- NOTE | 2022-05-03 12:31 | EKG12_ITS ---
Test Reason : PRE OP Blood Pressure : / mmHG Vent. Rate : 080 BPM Atrial Rate : 080 BPM P-R Int : 200 ms QRS Dur : 066 ms QT Int : 342 ms P-R-T Axes : 064 040 066 degrees QTc Int : 394 ms Normal sinus rhythm Low voltage QRS Borderline ECG Confirmed by YOLANDA PETERS, ELENA ([id number]), slot editor GRAYSON MONIQUE ([id number]) on 05/05/2022 7:11:11 AM Referred By: Vannesa Nunez Confirmed By:ELENA GUERRERO MD
[2022-05-03 13:24] LABS: Hemoglobin A1c 8.6 % (3.8-5.6)
[2022-05-03 14:16] LABS: Anion Gap 5 (5-15); BUN 30 mg/dL (7-18); BUN/Creat Ratio 46.9 RATIO (10-20); Calcium,Total 10.4 mg/dL (8.5-10.1); Chloride 104 mmol/L (98-107); Creatinine, Serum 0.64 mg/dL (0.55-1.02); EST Glomerular Filtration Rate 97 mL/min (>60); Est Glom Filt Rate - Afr Amer 118 mL/min (>60); Glucose 243 mg/dL (74-106); Potassium 3.8 mmol/L (3.5-5.1); Sodium Level 139 mmol/L (136-145); Thyroid Stim Hormone (TSH) 1.14 uIU/mL (0.358-3.74)
[2022-05-07 15:28] LABS: Hematocrit 43.9 % (37-47); Hemoglobin 14.5 g/dL (12.0-15.0)
[2022-05-10] VITALS (11 sets, daily range): BP systolic 142–163; BP diastolic 73–96; PULSE 67–94; RESP 16–18; TEMP 36.1–37.1; O2SAT 93–100; BMI 28.6; BMI 28.7
[2022-05-10] MEDS: Lactated Ringers 1,000 ML 15 ML IV ×3 (06:53→10:42)
[2022-05-10 07:10] LABS: Bedside Glucose 176 mg/dL (74-106)
[2022-05-10] MEDS: Cefazolin 2 GM in 0.9% Normal Saline 100 ML IV (07:30)
[2022-05-10] MEDS: Lidocaine 1% (30 ml sdv) 30 ML Vial (07:58)
[2022-05-10] MEDS: Estrogens,Conj. 1 Tube 1 DOSE (09:59)
[2022-05-10 10:51] LABS: Bedside Glucose 260 mg/dL (74-106)
[2022-05-10] MEDS: 0.9% Saline Lock 10 ML Syringe IV (12:28)
[2022-05-10] MEDS: Morphine 2 MG/ML Syringe IV ×2 (12:28→16:28)
[2022-05-10] MEDS: Docusate Sodium 100 MG Capsule 200 MG PO ×2 (12:28→21:18)
[2022-05-10] MEDS: Dext 5%-0.45% NS 1,000 ML 100 ML IV (12:29)
--- NOTE | 2022-05-10 13:28 | PCM.OPRPT ---
Problems Associated Problem List Diagnoses (1) Cystocele with rectocele: Report of Operation Date of Procedure: 05/10/22 Pre-Operative Diagnosis: Cystocele, rectocele and stress urinary incontinence Post-Operative Diagnosis: Same Surgery/Procedure Performed:: Anterior with dermis, posterior repair, bilateral sacrospinous ligament fixation, mid urethral sling, cystoscopy with bilateral ureteral catheterization Surgeon: Vannesa Nunez Type of Anesthesia: General Description of Procedure: The patient is a 71-year-old female with a significant pelvic organ prolapse. She previously underwent a resection of a cyst at her bladder neck. That was approximately 3 months ago. She now presents for surgical intervention for her prolapse. Informed consent was obtained. The patient was taken to the operating room and placed on the operating room table. Anesthesia monitored the head, neck, airway, IV access and vital signs throughout the case. Once anesthesia was appropriately administered, the patient was placed into exaggerated dorsolithotomy and Trendelenburg position and was prepped and draped in usual sterile fashion. A Rosario catheter was placed to straight drain and the bladder was emptied. At this time her anterior vaginal wall was isolated and injected submucosally for hydrostatic dissection and hemostatic control. A midline vertical incision was made and sharp and blunt dissection was performed on either side until the ischial spines were palpable. The sacrospinous ligaments were then identified and freed from surrounding tissues. Using the Capio device, Ethibond sutures were passed through the sacrospinous ligaments bilaterally and then through the dermis that had previously been cut to length, and then through the vaginal mucosa at the apex bilaterally. The dermis was then secured using intermittent 2-0 Vicryl suture into tissue near the bladder neck and the pubocervical fascia bilaterally. The dermis lay flat against the bladder. The midline incision was closed using running interlocking 2-0 Vicryl. At this time, the Ethibond sutures were tied into position and the prolapse was reduced. The Rosario catheter was then removed and the patient was flattened. A cystourethroscopy was performed through the urethra under direct visualization into the urinary bladder. There is no evidence of injury to the bladder mucosa. Bilateral ureteral orifices were intubated with a 5 [place] whistle-tip catheter which easily extended to 20 cm bilaterally without evidence of injury, obstruction or hemorrhage. At this time the cystoscope was removed and the Rosario catheter was replaced. Attention was then turned towards the posterior vaginal wall. The submucosa was injected with local for hydrostatic dissection and hemostatic control. A midline incision was made. Sharp and blunt dissection was performed on either side until the rectovaginal fascia was identified. The fascia was brought together in a 2 layer closure using interrupted 2-0 Vicryl. The perineal body was brought together with 2-0 Vicryl. The vaginal mucosa was closed using running interlocking 2-0 Vicryl. At this time the mid urethra was isolated and injected submucosally. A midline vertical incision was made approximately 2 cm in length. Sharp and blunt dissection was performed on either side of the urethra with care being taken to avoid entrance into the vaginal mucosa or the urethra. Using the trochars provided, the Altis mid urethral sling was inserted into the transobturator complexes bilaterally. Using the tensioning suture, the sling was situated in a flat position against the urethra without tension. The tensioning suture was then cut and the incision was closed using running interlocking 2-0 Vicryl. The Rosario catheter was removed and a cystourethroscopy through the urethra revealed no evidence of injury to the bladder or the urethra. At this time the cystoscope was removed and the Rosario catheter was reinserted with 10 cc in the balloon. At this time the vagina was packed with vaginal packing and estrogen cream. The patient was awakened and taken to the recovery room in good condition. There were no complications during this procedure. Grafts/Implants Used: Dermis, Altis mid urethral sling Complications None Admit VTE Documentation VTE Present on Admission: Yes VTE Mechan Device Prophylaxis: SCD's VTE Pharm Prophylaxis ordered?: Yes
--- NOTE | 2022-05-10 14:42 | DCINST_ITS ---
Discharge Instructions Diet Discharge Diet: No restrictions Activity Discharge Activity: May Not Drive (for 2 weeks) and May Shower May resume sexual activity in: 8 weeks Dressing / Incision Call your doctor if your incision/area has: Continuous Slow Oozing, Sudden Increased Bleeding, Increased Pain/ Swelling and Foul Smelling Discharge Call your doctor if you observe: Fever of 101 or Higher, Inability to urinate and Inability to have a bowel movement Follow Up Care Please Follow Up With: Vannesa Nunez MD When: call office for appt Test Results: Test results from this visit will be discussed in further detail at your follow- up appointment, if applicable. Discharge Plan Admission Admit Date/Time: 05/10/22 07:39 Attending Provider: Vannesa Nunez Primary Care Provider: Klaus Rasmussen Consulting Providers: Bradford Alba Discharge Orders/Prescriptions Prescriptions: New ondansetron HCl [ondansetron HCl] 8 mg tablet 8 mg PO Q8H PRN PRN (Reason: Nausea) 7 Days Qty: 20 0RF oxycodone-acetaminophen [Percocet] 5-325 mg tablet 1 tab PO Q8H PRN (Reason: pain) 4 Days Qty: 12 0RF cephalexin [cephalexin] 500 mg capsule 500 mg PO Q12 3 Days Qty: 6 0RF Continued flaxseed oil 1,000 mg capsule 1,000 mg PO BID cinnamon bark [Cinnamon] 500 mg capsule 500 mg PO BID minerals tablet tablet 1 tab PO BID vitamins A,C,and E-selenium capsule capsule 1 cap PO BID alpha lipoic acid 200 mg capsule 200 mg PO DAILY coenzyme Q10 [Co Q-10] 30 mg capsule 30 mg PO DAILY grape seed extract-bioflavonoids, citrus 50 mg-250 mg capsule 50-250 mg capsule 1 cap PO MOWEFRSA latanoprost 0.005 % drops 1 drp OPHTHALMIC QPM estradiol 0.01 % (0.1 mg/gram) cream 1 g VAGINAL .twice weekly Myrbetriq 50 mg tablet extended release 24 hr 50 mg PO DAILY turmeric 400 mg capsule 400 mg PO DAILY PreserVision AREDS-2 250-90-40-1 mg capsule 1 tab PO BID cholecalciferol (vitamin D3) 10 mcg (400 unit) capsule 10 mcg PO DAILY guar gum 1 gram tablet 1 g PO BID magnesium 200 mg tablet 200 mg PO PRN PRN (Reason: LEG CRAMPS) calcium carbonate 500 MG tablet,chewable 200 mg PO DAILY d-mannose 500 mg Capsule 500 mg PO PRN PRN (Reason: Bladder Spasms) Trulicity 0.75 mg/0.5 mL pen injector 0.75 mg subcut WE cephalexin 500 mg capsule 500 mg PO 3XD Label Comments: TAKE 1 CAPSULE BY MOUTH THREE TIMES DAILY metformin 1,000 mg tablet 1,000 mg PO BID Qty: 180 3RF bisoprolol 5 mg-hydrochlorothiazide 6.25 mg tablet 5-6.25 mg tablet 1 tab PO DAILY Qty: 90 3RF Farxiga 10 mg tablet 10 mg PO DAILY Qty: 90 1RF levothyroxine 75 mcg tablet 75 mcg PO DAILY Qty: 30 3RF Referrals / Follow Up: Klaus Rasmussen DO [Primary Care Provider] - Disposition Disposition (needs filled in before D/C Order can be placed): Home, Self Care
[2022-05-10] MEDS: HYDROcodone Bitartrate/Apap 5/325 Tablet PO ×2 (14:54→21:17)
[2022-05-10 17:00] LABS: Bedside Glucose 207 mg/dL (74-106)
[2022-05-10 21:51] LABS: Bedside Glucose 342 mg/dL (74-106)
[2022-05-10] MEDS: metFORMIN HCl 1,000 MG Tablet 1000 MG PO (22:38)
[2022-05-11] MEDS: Morphine 2 MG/ML Syringe IV (01:05)
[2022-05-11 01:40] LABS: Bedside Glucose 169 mg/dL (74-106)
[2022-05-11 01:50] VITALS: BP 155/93; PULSE 86; RESP 18; TEMP 36.7; O2SAT 98
[2022-05-11] MEDS: Ondansetron 4 MG/2 ML Vial IV (03:23)
[2022-05-11] MEDS: 0.9% Saline Lock 10 ML Syringe IV (03:24)
[2022-05-11 04:01] VITALS: BMI 28.7
[2022-05-11 05:44] LABS: Absolute Lymphocyte Count 1.15 X10^3/uL (0.83-4.51); Absolute Neutrophil Count 6.9 X10^3/uL (2.0-7.7); Basophil# 0.01 X10^3/uL; Basophil% 0.1 % (0-1); Eosinophil# 0.04 X10^3/uL; Eosinophils% 0.5 % (0-5); Hematocrit 43.5 % (37-47); Hemoglobin 14.5 g/dL (12.0-15.0); Lymphocyte # 1.15 X10^3/ul (0.83-4.51); Lymphocyte % 13.3 % (19-41); Mean Corp Hgb Conc 33.3 g/dL (32-36); Mean Corpuscular Hgb 30.9 pg (27.0-32.0); Mean Corpuscular Volume 92.8 fL (81-99); Mean Platelet Vol. 9.5 fl (6.2-12.0); Monocyte# 0.51 X10^3/uL; Monocyte% 5.9 % (0-10); NRBC Flagged by Analyzer 0 % (0-5); Neutrophil # 6.89 X10^3/uL (2.7-7.7); Neutrophil % 79.7 % (47-70); Platelet Count 199 K/mm3 (150-450); RBC Distribution Width CV 12.3 % (11.6-14.6); RBC Distribution Width SD 41.9 fl (35.1-43.9); Red Blood Count 4.69 M/mm3 (4.2-5.4); White Blood Count 8.6 K/mm3 (4.4-11.0)
[2022-05-11 06:36] LABS: Anion Gap 8 (5-15); BUN 13 mg/dL (7-18); BUN/Creat Ratio 27.4 RATIO (10-20); Calcium,Total 9.1 mg/dL (8.5-10.1); Chloride 102 mmol/L (98-107); Creatinine, Serum 0.47 mg/dL (0.55-1.02); EST Glomerular Filtration Rate 137 mL/min (>60); Est Glom Filt Rate - Afr Amer 166 mL/min (>60); Estimated Creatinine Clearance 38.94 ml/min; Glucose 217 mg/dL (74-106); Potassium 3.5 mmol/L (3.5-5.1); Sodium Level 136 mmol/L (136-145)
[2022-05-11] MEDS: Enoxaparin 40 MG/0.4 ML Syringe SC (06:44)
[2022-05-11 06:59] VITALS: BP 150/90; PULSE 89; RESP 18; TEMP 36.6; O2SAT 94
[2022-05-11 07:39] VITALS: BP 180/106; PULSE 87; RESP 16; TEMP 37.1; O2SAT 94
[2022-05-11] MEDS: metFORMIN HCl 1,000 MG Tablet 1000 MG PO (09:47)
[2022-05-11] MEDS: Cephalexin 500 MG Capsule PO ×2 (09:48→15:08)
[2022-05-11] MEDS: Docusate Sodium 100 MG Capsule 200 MG PO (09:48)
[2022-05-11] MEDS: hydroCHLOROthiazide 6.25mg TAB 6.25 MG PO (09:49)
[2022-05-11] MEDS: Empagliflozin 25 MG Tablet PO (09:49)
[2022-05-11] MEDS: Bisoprolol Fumarate 5 MG Tablet PO (09:50)
[2022-05-11] MEDS: Levothyroxine 75 MCG Tablet PO (09:50)
[2022-05-11] MEDS: HYDROcodone Bitartrate/Apap 5/325 Tablet PO (10:09)
[2022-05-11 10:55] VITALS: BP 183/98; PULSE 80; RESP 14; TEMP 36.8; O2SAT 93
[2022-05-11 13:01] VITALS: BP 153/90
[2022-05-11 13:20] LABS: Bedside Glucose 176 mg/dL (74-106)
--- NOTE | 2022-05-11 14:00 | CASEMGMT ---
Addendum entered by Venita Toro 05/11/22 14:03: Discussed dc planning, pt denied any homegoing needs at this time. Original Note: RN KANCHAN in to discuss DENNY form with patient. HA HEMPHILL explained DENNY form, patient voiced understanding. Pt signed form and filed in chart. Pt provided with a copy of signed DENNY form. Patient had no further questions or concerns at this time.
== END 2022-05-11 15:16 | disposition home or self-care (01) ==
LOC: SDC 10:45 → MS3 10:45
PROVIDERS: Anesthesiology; Admitting Provider Urology; PCP Family Medicine; Referring Provider Urology; Visit Provider Urology
PROC: (CPT 57260; principal; 2022-05-10 07:15)
DX: N99.3 Prolapse of vaginal vault after hysterectomy (principal); E11.9 Type 2 diabetes mellitus without complications; N39.3 Stress incontinence (female) (male); I10 Essential (primary) hypertension; E03.9 Hypothyroidism, unspecified; Z79.899 Other long term (current) drug therapy; Z79.84 Long term (current) use of oral hypoglycemic drugs; Z79.890 Hormone replacement therapy
CPT/HCPCS: 57282; 57288; 57260; 00942; 36415; 51702; 80048; 82962; 83036; 84443; 85014; 85018; 85025; 93005; 96361; 96372; 96374; 96375; 96376; 99218; 99251; J7120; A4216; C1758; G0378; G0463; J2405; J7799

== ENCOUNTER → 2023-01-16 | Outpatient (CLI) | payer MEDICARE, SELFPAY ==
--- NOTE | 2023-01-16 13:59 | BI_ITS ---
MAMMOGRAPHY - BILATERAL SCREENING 3-D TOMOSYNTHESIS REASON FOR EXAM: Female, 72 years old. Routine screening PERTINENT HISTORY: No significant family history. TECHNIQUE: 2-D mammograms and 3-D Tomosynthesis of the breast (s) were performed. CAD was performed. COMPARISON: 11/01/2021 FINDINGS: The breast composition is composed of scattered fibroglandular density. Scattered benign calcifications are seen. No dense spiculated masses or suspicious microcalcifications are identified. No architectural distortion is identified. There is no skin thickening or retraction. There has been no significant change since the prior study. BI/SCRN MAMM (CAD)W/MITESH BILAT IMPRESSION: No mammographic signs of malignancy. Routine yearly mammograms recommended. ASSESSMENT CATEGORY: BIRADS Category 1: Negative. A letter regarding these results will be sent to the patient by the facility within 30 days. FOLLOW UP RECOMMENDATION: Yearly follow up mammogram recommended. (A) Approximately 10% of breast cancers are not detected by mammography. A normal mammogram should not delay biopsy of a clinically suspicious abnormality. Electronically Signed: Louis Choi MD at 15:21 EDT ,
== END | disposition home or self-care (01) ==
LOC: OPBI 13:58
PROVIDERS: PCP Family Medicine; Referring Provider Family Medicine; Visit Provider Family Medicine
DX: Z12.31 Encounter for screening mammogram for malignant neoplasm of breast (principal)
CPT/HCPCS: 77063; 77067

== ENCOUNTER → 2023-01-24 | Outpatient (CLI) | payer MEDICARE, SELFPAY ==
--- NOTE | 2023-01-24 08:23 | RAD_ITS ---
STUDY: X-RAY - ESOPHAGUS (BARIUM SWALLOW) WITH FLUOROSCOPY REASON FOR EXAM: Female, 72 years old. ACID REFLUX TECHNIQUE: 23 view(s) of the esophagus were obtained following swallowing of barium. FLUOROSCOPY TIME (if supplied): (43 seconds) minutes/seconds. 20.89 mGy COMPARISON: None. FINDINGS: There is no demonstrated esophageal foreign body. Minimal narrowing at the gastroesophageal junction. The ingested 12 mm tablet of barium is trapped at the gastroesophageal junction. Normal visualized aortic arch and descending thoracic aorta. Normal visualized pulmonary parenchyma. Normal visualized osseous structures of the thorax. RAD/Esophagus Dual Contrast IMPRESSION: Mild narrowing at the level of the gastroesophageal junction with trapping of the 12 mm tablet of barium at that level. Electronically Signed: Favio Vera MD at 13:57 EDT ,
== END | disposition home or self-care (01) ==
LOC: RAD 08:17
PROVIDERS: PCP Family Medicine; Referring Provider Otolaryngology; Visit Provider Otolaryngology Otolaryngology/Facial Plastic Surgery
DX: K21.9 Gastro-esophageal reflux disease without esophagitis (principal); R13.14 Dysphagia, pharyngoesophageal phase
CPT/HCPCS: 74221

== ENCOUNTER → 2023-04-10 | Outpatient (CLI) | payer MEDICARE, SELFPAY ==
[2023-04-10 16:17] LABS: ALB/GLOB Ratio 1.2 RATIO (0.9-2.4); AST(SGOT) 12 U/L (15-37); Alanine Aminotransfer ALT/SGPT 30 U/L (13-56); Albumin, Serum 3.8 g/dL (3.2-5.0); Alkaline Phosphatase 71 U/L (45-117); Anion Gap 7 (5-15); BUN 20 mg/dL (7-18); BUN/Creat Ratio 35.5 RATIO (10-20); Calcium,Total 9.6 mg/dL (8.5-10.1); Chloride 108 mmol/L (98-107); Cholesterol 225 mg/dL (200); Creatinine, Serum 0.56 mg/dL (0.55-1.02); EST Glomerular Filtration Rate 112 mL/min (>60); Est Glom Filt Rate - Afr Amer 136 mL/min (>60); Globulin 3.2 g/dL (2.2-4.2); Glucose 168 mg/dL (74-106); High Density Lipoprotein 49 mg/dL; Potassium 3.5 mmol/L (3.5-5.1); Sodium Level 142 mmol/L (136-145); Thyroid Stim Hormone (TSH) 0.62 uIU/mL (0.358-3.74); Triglycerides 255 mg/dL; Very Low Density Lipoprotein 51 mg/dL (5-40)
== END | disposition home or self-care (01) ==
LOC: BIMLAB 12:00
PROVIDERS: PCP Family Medicine; Visit Provider Family Medicine
DX: E11.9 Type 2 diabetes mellitus without complications (principal); E03.9 Hypothyroidism, unspecified
CPT/HCPCS: 36415; 80053; 80061; 84443

== ENCOUNTER → 2023-12-12 | Outpatient (CLI) | payer MEDICARE, SELFPAY ==
--- NOTE | 2023-12-12 13:00 | US_ITS ---
STUDY: RENAL ULTRASOUND - COMPLETE REASON FOR EXAM: Female, 73 years old. URINARY RETENTION TECHNIQUE: Ultrasound evaluation of the kidneys was performed with real-time and static canas-scale imaging. COMPARISON: None. FINDINGS: RIGHT KIDNEY: Normal location of the right kidney, which is normal in size. The right kidney measures 11.7 x 6.1 cm. . There is a normal cortex of the right kidney. Cyst visualized measuring 11 x 12 mm. Right stone measures 4 mm. There is no right hydronephrosis. Multiple smaller stones visualized. DISTAL RIGHT URETER: There is non-visualization of the distal right ureter. There is no demonstrated right ureterovesical junction calculus. There is a visualized right ureteral jet. LEFT KIDNEY: Normal location of the left kidney, which is normal in size. The left kidney measures 12 x 5.2 cm. . There is a normal cortex of the left kidney. There is no left renal mass or cyst. There is a 3 mm left renal calculi. There is no left hydronephrosis. Multiple smaller stones visualized. DISTAL LEFT URETER: There is non-visualization of the distal left ureter. There is no demonstrated left ureterovesical junction calculus. There is a visualized left ureteral jet. AORTA: There is obscuration of the abdominal aorta by overlying bowel gas I.V.C.: It is not visualized. There is too much overlying bowel gas. BLADDER: The distended urinary bladder has a volume in cc of 375. Postvoid volume is 292cc. There is a normal wall thickness of the distended urinary bladder. US/Kidney and Bladder IMPRESSION: There are bilateral renal calculi. There is no evidence for an obstruction. There is no hydronephrosis. Electronically Signed: Pilo Hall MD at 21:38 EDT ,
== END | disposition home or self-care (01) ==
LOC: US 12:59
PROVIDERS: PCP Family Medicine; Referring Provider Urology; Visit Provider Urology
DX: R33.9 Retention of urine, unspecified (principal)
CPT/HCPCS: 76770

== ENCOUNTER → 2024-03-11 | Outpatient (CLI) | payer MEDICARE, SELFPAY ==
--- NOTE | 2024-03-11 12:26 | BI_ITS ---
MAMMOGRAPHY - BILATERAL SCREENING REASON FOR EXAM: Female, 73 years old. Routine annual screening examination. PERTINENT HISTORY: Non-contributory. TECHNIQUE: Digital bilateral breast mitesh (3D mammographic acquisition) in the CC and MLO projections. 2-D mediolateral oblique (MLO) and craniocaudad (CC) views of both breasts were obtained. CAD: Full Field Digital Mammography with Computer Added Detection was performed. COMPARISON: Comparison is made with prior study dated January 16, 2023 and November 01, 2021. FINDINGS: Breast Composition: There are scattered areas of fibroglandular density. There are no dominant masses or suspicious calcifications. No other significant abnormalities are identified. There has been no significant change since the prior study. BI/SCRN MAMM (CAD)W/MITESH BILAT IMPRESSION: Stable bilateral screening mammogram. Yearly follow-up mammogram recommended. (A) ASSESSMENT CATEGORY: BIRADS Category 1: Negative. A letter regarding these results will be sent to the patient by the facility within 30 days. Approximately 10% of breast cancers are not detected by mammography. A normal mammogram should not delay biopsy of a clinically suspicious abnormality. [id number] Electronically Signed: Favio Vera MD at 13:29 EDT ,
== END | disposition home or self-care (01) ==
LOC: OPBI 12:26
PROVIDERS: PCP Family Medicine; Referring Provider Family Medicine; Visit Provider Family Medicine
DX: Z12.31 Encounter for screening mammogram for malignant neoplasm of breast (principal)
CPT/HCPCS: 77063; 77067

== ENCOUNTER → 2024-04-21 | Outpatient (CLI) | payer MEDICARE, SELFPAY ==
[2024-04-21 15:30] LABS: ALB/GLOB Ratio 1.2 RATIO (0.9-2.4); AST(SGOT) 13 U/L (15-37); Alanine Aminotransfer ALT/SGPT 26 U/L (13-56); Albumin, Serum 3.9 g/dL (3.2-5.0); Alkaline Phosphatase 66 U/L (45-117); Anion Gap 6 (5-15); BUN 27 mg/dL (7-18); BUN/Creat Ratio 43.2 RATIO (10-20); Calcium,Total 9.9 mg/dL (8.5-10.1); Chloride 105 mmol/L (98-107); Cholesterol 239 mg/dL (200); Creatinine, Serum 0.62 mg/dL (0.55-1.02); EST Glomerular Filtration Rate 99 mL/min (>60); Est Glom Filt Rate - Afr Amer 120 mL/min (>60); Globulin 3.3 g/dL (2.2-4.2); Glucose 165 mg/dL (74-106); High Density Lipoprotein 59 mg/dL; Protein, Total 7.2 g/dL (6.4-8.2); Sodium Level 138 mmol/L (136-145); Triglycerides 238 mg/dL; Very Low Density Lipoprotein 48 mg/dL (5-40)
== END | disposition home or self-care (01) ==
LOC: BIMLAB 13:57
PROVIDERS: PCP Family Medicine; Visit Provider Family Medicine
DX: E11.9 Type 2 diabetes mellitus without complications (principal); E03.9 Hypothyroidism, unspecified
CPT/HCPCS: 36415; 80053; 80061; 84443

== ENCOUNTER → 2024-05-19 | Outpatient (CLI) | payer MEDICARE, SELFPAY ==
--- NOTE | 2024-05-19 11:06 | BD_ITS ---
STUDY: DUAL ENERGY X-RAY ABSORPTIOMETRY / DXA REASON FOR EXAM: Female, 73 years old. Osteopenia TECHNIQUE: Bone Mineral Density (BMD) measurements of lumbar spine and bilateral hips were obtained. COMPARISON: None. FINDINGS: Lumbar Spine (L1-L4): g/cm2 (0.678) / T-score (-3.8) / Z-score (-1.4) Findings are suggestive of osteoporosis with a high fracture risk. Left Femur Total: g/cm2 (0.697) / T-score (-2.0) / Z-score (-0.3) Left Femoral Neck: g/cm2 (0.555) / T-score (-2.6) / Z-score (-0.6) Right Femur Total: g/cm2 (0.642) / T-score (-2.5) / Z-score (-0.8) Right Femoral Neck: g/cm2 (0.546) / T-score (-2.7) / Z-score (-0.7) BD/Dexa Bone Density Study IMPRESSION: The patient is considered osteoporotic as outlined below according to World Juan Organization (WHO) criteria with a high fracture risk. Reference Information: The T-score is the number of standard deviations above or below the standard which is normal for young adults at their peak bone mineral density. The World Health Organization (WHO) interprets the T-scores as follows: Above -1 Normal bone density Between -1 and -2.5 Osteopenia Equal to / or below -2.5 Osteoporosis As a practical clinical guideline, osteopenia may be graded as follows: Mild -1 through -1.5 Moderate -1.6 through -2.0 Severe -2.1 through -2.4 The Z-score is the number of standard deviations above or below age-matched controls. A Z-score of less than -1.5 would be considered abnormal. References: 1. NIH Osteoporosis and Related Bone Diseases www osteo.org 2. International Society for Clinical Densitometry www iscd.org 3. National Osteoporosis Foundation www nof.org Electronically Signed: Favio Vera MD at 13:21 EST ,
== END | disposition home or self-care (01) ==
LOC: OPBD 10:59
PROVIDERS: PCP Family Medicine; Referring Provider Family Medicine; Visit Provider Family Medicine
DX: M81.0 Age-related osteoporosis without current pathological fracture (principal)
CPT/HCPCS: 77080

== ENCOUNTER → 2025-03-16 | Outpatient (CLI) | payer MEDICARE, SELFPAY ==
--- NOTE | 2025-03-16 12:45 | BI_ITS ---
EXAM: SCRN MAMM (CAD)W/MITESH BILAT DATE: 03/16/2025 CLINICAL HISTORY: F, Age 74 y/o , SCREENING No family history. TECHNIQUE: Procedure Code: [id number] Modality: MG Procedure: SCRN MAMM (CAD)W/MITESH BILAT COMPARISON: Prior exam(s) dated March 11, 2024.. FINDINGS: TISSUE DENSITY: There are scattered areas of fibroglandular density. Bilateral Breast Mammographic Findings: No significant masses, calcifications or other abnormalities are identified. No suspicious masses, areas of developing architectural distortion, or suspicious calcifications. There has been no significant interval change. BI/SCRN MAMM (CAD)W/MITESH BILAT IMPRESSION: Stable bilateral screening mammogram. OVERALL FINAL ASSESSMENT BI-RADS 1: NEGATIVE. RECOMMENDATION: Routine annual follow-up in 1 Year A letter with findings and recommendations will be mailed to the patient. Reading Location: [place] [id number]
== END | disposition home or self-care (01) ==
LOC: OPBI 12:51
PROVIDERS: PCP Family Medicine; Referring Provider Internal Medicine; Visit Provider Internal Medicine
DX: Z12.31 Encounter for screening mammogram for malignant neoplasm of breast (principal)
CPT/HCPCS: 77063; 77067